=== PATIENT | male | born 1945 | race Caucasian/White ===

== ENCOUNTER 2020-12-06 23:21 | Observation (INO) | payer MEDICARE, OTHER ==
[2020-12-06] MEDS ORDERED: Sodium Chloride 0.9% 1,000 ML IV ONE (23:50)
--- NOTE | 2020-12-06 23:51 | EDM.PDOC ---
ED HPI GENERAL MEDICAL PROBLEM - General Chief Complaint: Gastrointestinal Problem Stated Complaint: BLOOD IN STOOL Time Seen by Provider: 12/06/20 23:32 Source of Information: Reports: Patient, Family () History Limitations: Reports: No Limitations - History of Present Illness INITIAL COMMENTS - FREE TEXT/NARRATIVE: Mr. Wilson is a very pleasant 75-year-old gentleman who now presents the ED after developing painless bright red blood per rectum around 19:30 this evening. He states that he has had 4-5 episodes since then. He also reports feeling somewhat lightheaded around the time he arrived to the ED. He denies having abdominal pain, or recent nausea, vomiting, constipation, or diarrhea. No prior similar symptoms. The patient states that he underwent a colonoscopy on 11/27/2020, with 10 polypectomies. All have returned negative for cancer. The patient states that he takes a full aspirin on "most days" to help treat some arthritic pain. He is not otherwise on an anticoagulant. Here in the ED, the patient's initial BP is found to be mildly elevated at 141/72, otherwise, he is hemodynamically stable, afebrile, saturating 96% on room air. He appears to be comfortable and in no acute distress. Prior to this evening, the patient denies having a recent fever, chills, sore throat, ear pain, nasal or sinus congestion, cough, dyspnea, chest pain, palpitations, nausea, vomiting, constipation, diarrhea, abdominal pain, urinary symptoms, recent weight gain or weight loss, recent bloody bowel movements or black bowel movements, recent joint aches, headaches, or rashes. I reviewed the PMHx/PSHx/SocHx, which was reviewed with the patient by the RN. The patient's PCP is Dr. Gary Avina. His Surgeon is Dr. Hamzah Barnett. - Related Data Allergies Allergy/AdvReac Type Severity Reaction Status Date / Time No Known Allergies Allergy Verified 12/06/20 23:29 Home Meds: Home Meds Cetirizine [ZyrTEC] 10 mg PO DAILY PRN 06/14/19 [History] Fluticasone Propionate [Flonase] 1 dose NASBOTH BID 06/14/19 [History] Glimepiride [Amaryl] 2 mg PO QPM 06/14/19 [History] Glimepiride [Amaryl] 4 mg PO QAM 06/14/19 [History] Levothyroxine [Synthroid] 50 mcg PO DAILY 06/14/19 [History] Lisinopril/Hydrochlorothiazide [Lisinopril-HCTZ 10-12.5 MG] 1 tab PO DAILY 06/14/19 [History] Sildenafil Citrate 60 mg PO ASDIRECTED PRN 06/14/19 [History] atorvaSTATin Calcium [Lipitor] 20 mg PO DAILY 06/14/19 [History] metFORMIN [Glucophage] 1,000 mg PO BID 06/14/19 [History] Albuterol Sulfate [Albuterol Sulfate HFA] 2 puff INH Q6H PRN 12/06/20 [History] Insulin Glarg,Human.Rec.Analog [Lantus] 13 units SQ QAM 12/06/20 [History] Insulin Glarg,Human.Rec.Analog [Lantus] 17 units SQ QPM 12/06/20 [History] Past Medical History HEENT History: Reports: Allergic Rhinitis, Impaired Vision Other HEENT History: Wears glasses Cardiovascular History: Reports: High Cholesterol, Hypertension Respiratory History: Reports: None Gastrointestinal History: Reports: Colon Polyp Genitourinary History: Reports: None 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 Musculoskeletal History: Reports: Fracture Neurological History: Reports: None Psychiatric History: Reports: None Endocrine/Metabolic History: Reports: Diabetes, Type II, Hypothyroidism Hematologic History: Reports: None Immunologic History: Reports: None Oncologic (Cancer) History: Reports: None Dermatologic History: Reports: Melanoma - Past Surgical History Head Surgeries/Procedures: Reports: None Respiratory Surgical History: Reports: None GI Surgical History: Reports: Colonoscopy Male Surgical History: Reports: None Oncologic Surgical History: Reports: None Dermatological Surgical History: Reports: None Social & Family History - Tobacco Use Tobacco Use Status *Q: Current Every Day Tobacco User Years of Tobacco use: 30 Packs/Tins Daily: 0.5 - Caffeine Use Caffeine Use: Reports: Coffee - Recreational Drug Use Recreational Drug Use: No ED ROS GENERAL - Review of Systems Review Of Systems: Comprehensive ROS is negative, except as noted in HPI. ED EXAM, GI/ABD - Physical Exam Exam: See Below Exam Limited By: No Limitations General Appearance: Alert, WD/WN, No Apparent Distress Eyes: Bilateral: Normal Appearance, EOMI Ears: Normal External Exam, Hearing Grossly Normal Nose: Normal Inspection Throat/Mouth: Normal Inspection, Normal Lips, Normal Voice, No Airway Compromise Head: Atraumatic, Normocephalic Neck: Normal Inspection, Full Range of Motion Respiratory/Chest: No Respiratory Distress, Lungs Clear, Normal Breath Sounds, No Accessory Muscle Use Cardiovascular: Normal Peripheral Pulses, Regular Rate, Rhythm, No Edema, No Gallop, No JVD, No Murmur, No Rub GI/Abdominal Exam: Normal Bowel Sounds, Soft, Non-Tender, No Organomegaly, No Distention, No Abnormal Bruit, No Mass Rectal (Males) Exam: Normal Rectal Tone, Bloody Stool (dark red/maroon), Heme + Stool. No: Mass, Perirectal Abscess, Tenderness Back Exam: Normal Inspection, Full Range of Motion, NT Extremities: Normal Inspection, Normal Range of Motion, No Pedal Edema, Normal Capillary Refill Neurological: Alert, Oriented, Normal Cognition, No Motor/Sensory Deficits Psychiatric: Normal Affect Skin Exam: Warm, Dry, Intact, Normal Color, No Rash Course - Vital Signs Last Recorded V/S: Last Vital Signs Temp 35.7 C L 12/06/20 23:29 Pulse 92 12/06/20 23:29 Resp 10 L 12/06/20 23:29 BP 141/72 H 12/06/20 23:29 Pulse Ox 96 12/06/20 23:29 Orthostatic Blood Pressure [ 98/63 Standing] Orthostatic Blood Pressure [ 87/68 Supine] - Orders/Labs/Meds Orders: Active Orders 24 hr Category Date Time Status Hemoccult [Fecal Occult Blood Collection] [RC] Care 12/06/20 23:56 Active ASDIRECTED Orthostatic Vital Signs [RC] STAT Care 12/06/20 23:45 Active Orthostatic Vital Signs [RC] STAT Care 12/06/20 23:50 Active Sodium Chloride 0.9% [Normal Saline] 1,000 ml Med 12/07/20 01:30 Active IV ASDIRECTED Medication Orders Sodium Chloride (Normal Saline) 1,000 mls @ 150 mls/hr IV ASDIRECTED WILLIE Last Admin: 12/07/20 01:35 Dose: 150 mls/hr Documented by: OLEGARIO Labs: Laboratory Tests 12/06/20 12/06/20 12/06/20 Range/Units 23:34 23:34 23:34 WBC 12.53 H (4.23-9.07) K/mm3 RBC 3.70 L (4.63-6.08) M/mm3 Hgb 10.2 L (13.7-17.5) gm/dl Hct 32.3 L (40.1-51.0) % MCV 87.3 (79.0-92.2) fl MCH 27.6 (25.7-32.2) pg MCHC 31.6 L (32.2-35.5) g/dl RDW Std Deviation 42.3 (35.1-43.9) fL Plt Count 254 (163-337) K/mm3 MPV 11.7 (9.4-12.3) fl Neutrophils % (Manual) 74 H (40-60) % Band Neutrophils % 0 (0-10) % Lymphocytes % (Manual) 21 (20-40) % Atypical Lymphs % 0 % Monocytes % (Manual) 4 (2-10) % Eosinophils % (Manual) 1 (0.8-7.0) % Basophils % (Manual) 0 L (0.2-1.2) Platelet Estimate Adequate Hypochromasia 1+ slight Poikilocytosis 1+ slight Anisocytosis 1+ slight RBC Morph Comment Normal PT 10.9 (9.7-12.0) SECONDS INR 1.02 APTT 22.8 (21.7-31.4) SECONDS Sodium 139 (136-145) mEq/L Potassium 4.2 (3.5-5.1) mEq/L Chloride 104 (98-107) mEq/L Carbon Dioxide 22 (21-32) mEq/L Anion Gap 17.2 H (5-15) BUN 25 H (7-18) mg/dL Creatinine 1.7 H (0.7-1.3) mg/dL Est Cr Clr Drug Dosing 37.57 mL/min Estimated GFR (MDRD) 39 (>60) mL/min BUN/Creatinine Ratio 14.7 (14-18) Glucose 270 H (83-115) mg/dL Calcium 8.6 (8.5-10.1) mg/dL Magnesium 2.0 (1.8-2.4) mg/dl Total Bilirubin 0.3 (0.2-1.0) mg/dL AST 14 L (15-37) U/L ALT 25 (16-63) U/L Alkaline Phosphatase 117 H (46-116) U/L Total Protein 6.6 (6.4-8.2) g/dl Albumin 3.5 (3.4-5.0) g/dl Globulin 3.1 gm/dL Albumin/Globulin Ratio 1.1 (1-2) Meds: Medications Generic Name Dose Route Start Last Admin Trade Name Freq PRN Reason Stop Dose Admin Sodium Chloride 1,000 mls @ 150 mls/hr 12/07/20 01:30 12/07/20 01:35 Normal Saline IV 150 mls/hr ASDIRECTED WILLIE Administration Discontinued Medications Generic Name Dose Route Start Last Admin Trade Name Freq PRN Reason Stop Dose Admin Sodium Chloride 1,000 mls @ 999 mls/hr 12/06/20 23:50 12/06/20 23:55 Normal Saline IV 12/07/20 00:50 999 mls/hr ONETIME ONE Administration Insulin Human Regular 5 unit 12/07/20 01:25 12/07/20 01:35 Insulin Regular, Human 100 Units/Ml 3 Ml Vial IV 12/07/20 01:26 5 unit ONETIME STA Administration - Re-Assessments/Exams Free Text/Narrative Re-Assessment/Exam: 12/06/20 23:45 As above, the patient has had 4-5 episodes of painless hematochezia since 19:30 tonight, following a colonoscopy with 10 polypectomies 9 days ago. While the patient describes the bleeding as bright red, on rectal exam, I find the stool to be dark red/maroon, but grossly heme positive. This suggests a right-sided source. No external hemorrhoids visualized, and no internal hemorrhoids palpated. I have ordered a work-up that includes orthostatics and several blood tests. 12/06/20 23:51 Notified by Karon SHANE that the patient is orthostatic. I have therefore ordered 1 L of IV fluid, to be followed by repeat orthostatics. 12/07/20 00:27 The patient's CBC is remarkable for mild leukocytosis of 12.53, but with 0% bandemia. His H/H is mildly depressed at 10.2/32.3, with the remainder of his CBC being unremarkable. His CMP is remarkable for an anion gap slightly elevated at 17.2, but with a bicarbonate normal at 22. His BUN/Cr are elevated at 25/1.7, and he has hyperglycemia of 270, with the remainder of his CMP being unremarkable. His magnesium level is within normal limits at 2.0. His coags are within normal limits. There are no prior labs to compare. 12/07/20 01:05 Following 1 L of IV fluid, the patient is no longer orthostatic. 12/07/20 01:17 Test results discussed with the patient and his . While the patient is no longer, strictly speaking, orthostatic, he is still somewhat hypotensive, and given his age, I believe it would be better if he were to be placed into observation so that he can be seen by the Surgeon in the morning. The patient and his agreed. Case then discussed with Dr. Juan Kay at 00:13. He recommended that the patient be admitted to the Hospitalist, then have Dr. Barnett called in the morning. 12/07/20 02:[address] Alva, Hospitalist, at 02:02. He accepted the patient for placement into observation. He asked that I write bridge orders. Departure - Departure Time of Disposition: 02:05 Disposition: Refer to Observation Condition: Good Clinical Impression: Lower GI bleed, Orthostasis, Renal insufficiency, Hyperglycemia due to type 2 diabetes mellitus - Discharge Information *PRESCRIPTION DRUG MONITORING PROGRAM REVIEWED*: Not Applicable *COPY OF PRESCRIPTION DRUG MONITORING REPORT IN PATIENT TY: Not Applicable Referrals: Gary Avina MD [Primary Care Provider] - Hamzah Barnett MD [Physician] - Forms: ED Department Discharge Sepsis Event Note (ED) - Evaluation Sepsis Screening Result: No Definite Risk - Focused Exam Vital Signs: Vital Signs Temp Pulse Resp BP Pulse Ox 12/06/20 23:29 35.7 C L 92 10 L 141/72 H 96 - My Orders Last 24 Hours: My Active Orders 12/06/20 23:45 Orthostatic Vital Signs [RC] STAT 12/06/20 23:50 Orthostatic Vital Signs [RC] STAT 12/06/20 23:56 Hemoccult [Fecal Occult Blood Collection] [RC] ASDIRECTED 12/07/20 01:30 Sodium Chloride 0.9% [Normal Saline] 1,000 ml IV ASDIRECTED - Assessment/Plan Last 24 Hours: My Active Orders 12/06/20 23:45 Orthostatic Vital Signs [RC] STAT 12/06/20 23:50 Orthostatic Vital Signs [RC] STAT 12/06/20 23:56 Hemoccult [Fecal Occult Blood Collection] [RC] ASDIRECTED 12/07/20 01:30 Sodium Chloride 0.9% [Normal Saline] 1,000 ml IV ASDIRECTED
[2020-12-07] MEDS ORDERED: Insulin Regular, Human 100 Units/ML 3 ML Vial IV STA (01:25)
[2020-12-07] MEDS ORDERED: Sodium Chloride 0.9% 1,000 ML IV SCH ×2 (01:30→04:30)
[2020-12-07] MEDS ORDERED: Sodium Chloride 0.9% 1,000 ML IV ONE (02:53)
[2020-12-07] MEDS ORDERED: Non-Formulary Medication 1 Each (Albuterol Sulfate 8.5 GM Inhaler) INH PRN (07:22)
[2020-12-07] MEDS: Pantoprazole 40 MG Vial IVPUSH SCH ×2 (08:18→20:27)
[2020-12-07] MEDS: Dextrose 5%-0.45% NaCl 1,000 ML IV SCH ×2 (08:18→20:31)
--- NOTE | 2020-12-07 08:32 | PCM.HP.2 ---
H&P History of Present Illness - General Date of Service: 12/07/20 Admit Problem/Dx: Admission Diagnosis/Problem Admission Diagnosis/Problem GI bleed not requiring more than 4 units of blood in 24 hours, ICU, or surgery - History of Present Illness Initial Comments - Free Text/Narative: Patient is a 75-year-old presents to the emergency department after developing bright red blood per rectum last evening. Patient reported in the emergency department that he had 4-5 episodes of hematochezia. At time presentation patient denied any abdominal discomfort, nausea and vomiting, diarrhea melena or hematemesis. It does appear that the patient underwent a colonoscopy on 11/27/2020 where he had 10 polypectomies for which they are reported to be negative for malignancy. Patient does not take any anticoagulation however is on a full-strength aspirin daily. Patient otherwise denies any complaints and overall is a marginal historian. - Related Data Allergies/Adverse Reactions: Allergies Allergy/AdvReac Type Severity Reaction Status Date / Time No Known Allergies Allergy Verified 12/06/20 23:29 Home Medications: Home Meds Cetirizine [ZyrTEC] 10 mg PO DAILY PRN 06/14/19 [History] Fluticasone Propionate [Flonase] 1 dose NASBOTH BID PRN 06/14/19 [History] Glimepiride [Amaryl] 2 mg PO 1800 06/14/19 [History] Glimepiride [Amaryl] 4 mg PO QAM 06/14/19 [History] Levothyroxine [Synthroid] 50 mcg PO DAILY 06/14/19 [History] Lisinopril/Hydrochlorothiazide [Lisinopril-HCTZ 10-12.5 MG] 1 tab PO DAILY 1 08/14/18 [History] Sildenafil Citrate 60 mg PO ASDIRECTED PRN 06/14/19 [History] atorvaSTATin Calcium [Lipitor] 20 mg PO DAILY 06/14/19 [History] metFORMIN [Glucophage] 1,000 mg PO 06/14/19 [History] Albuterol Sulfate [Albuterol Sulfate HFA] 2 puff INH Q6H PRN 12/06/20 [History] Insulin Glarg,Human.Rec.Analog [Lantus] 13 units SQ QAM 12/06/20 [History] Insulin Glarg,Human.Rec.Analog [Lantus] 19 units SQ 1800 12/06/20 [History] Past Medical History HEENT History: Reports: Allergic Rhinitis, Impaired Vision Other HEENT History: Wears glasses Cardiovascular History: Reports: High Cholesterol, Hypertension Respiratory History: Reports: None Gastrointestinal History: Reports: Colon Polyp Genitourinary History: Reports: None 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 Musculoskeletal History: Reports: Fracture Neurological History: Reports: None Psychiatric History: Reports: None Endocrine/Metabolic History: Reports: Diabetes, Type II, Hypothyroidism Hematologic History: Reports: None Immunologic History: Reports: None Oncologic (Cancer) History: Reports: None Dermatologic History: Reports: Melanoma - Infectious Disease History Infectious Disease History: Reports: Chicken Pox, Measles - Past Surgical History Head Surgeries/Procedures: Reports: None HEENT Surgical History: Reports: None Cardiovascular Surgical History: Reports: None Respiratory Surgical History: Reports: None GI Surgical History: Reports: Colonoscopy, Other (See Below) Other GI Surgeries/Procedures: 11/27 with 10 polyps removed, all were non malignant Male Surgical History: Reports: None Endocrine Surgical History: Reports: None Neurological Surgical History: Reports: None Musculoskeletal Surgical History: Reports: None Oncologic Surgical History: Reports: None Dermatological Surgical History: Reports: None Social & Family History - Family History Family Medical History: No Pertinent Family History - Tobacco Use Tobacco Use Status *Q: Former Tobacco User Years of Tobacco use: 20 Packs/Tins Daily: 0.5 Used Tobacco, but Quit: Yes Month/Year Tobacco Last Used: Second Hand Smoke Exposure: No - Caffeine Use Caffeine Use: Reports: Coffee Caffeine Use Comment: 1-2 cups a day - Alcohol Use Date of Last Drink: 11/16/20 - Recreational Drug Use Recreational Drug Use: No H&P Review of Systems - Review of Systems: Review Of Systems: Comprehensive ROS is negative, except as noted in HPI. General: Reports: No Symptoms HEENT: Reports: No Symptoms Pulmonary: Reports: No Symptoms Cardiovascular: Reports: No Symptoms Gastrointestinal: Reports: Bloody Stool ( ), Hematochezia. Denies: Hematemesis, Melena, Mucous in Stool, Nausea, Stool Incontinence Genitourinary: Reports: No Symptoms Musculoskeletal: Reports: No Symptoms Skin: Reports: No Symptoms Psychiatric: Reports: No Symptoms Neurological: Reports: No Symptoms Exam - Exam Exam: See Below - Vital Signs Vital Signs: Last Vital Signs Temp 97.7 F 12/07/20 04:19 Pulse 74 12/07/20 04:19 Resp 16 12/07/20 04:19 BP 118/82 12/07/20 04:19 Pulse Ox 98 12/07/20 04:19 Orthostatic Blood Pressure [ 77/52 Sitting] Orthostatic Blood Pressure [ 86/65 Standing] Orthostatic Blood Pressure [ 106/58 Supine] Weight: 180 lb 3.2 oz - Exam General: Alert, Oriented HEENT: Conjunctiva Clear, Hearing Intact, Mucosa Moist & [place] Neck: Supple, Trachea Midline Lungs: Clear to Auscultation, Normal Respiratory Effort Cardiovascular: Regular Rate, Regular Rhythm. No: Systolic Murmur GI/Abdominal Exam: Normal Bowel Sounds, Soft, Non-Tender, No Organomegaly, No Distention. No: Guarding, Rigid, Rebound, Tender, Splenomegaly Extremities: Normal Inspection Peripheral Pulses: 2+: Radial (L), Radial (R) Skin: Warm, Dry, Intact Neuro Extensive - Mental Status: Alert, Oriented x3, Other (gcs 15 ) - Patient Data Lab Results Last 24 hrs: Laboratory Results - last 24 hr 12/06/20 12/06/20 12/06/20 Range/Units 23:34 23:34 23:34 WBC 12.53 H (4.23-9.07) K/mm3 RBC 3.70 L (4.63-6.08) M/mm3 Hgb 10.2 L (13.7-17.5) gm/dl Hct 32.3 L (40.1-51.0) % MCV 87.3 (79.0-92.2) fl MCH 27.6 (25.7-32.2) pg MCHC 31.6 L (32.2-35.5) g/dl RDW Std Deviation 42.3 (35.1-43.9) fL Plt Count 254 (163-337) K/mm3 MPV 11.7 (9.4-12.3) fl Neutrophils % (Manual) 74 H (40-60) % Band Neutrophils % 0 (0-10) % Lymphocytes % (Manual) 21 (20-40) % Atypical Lymphs % 0 % Monocytes % (Manual) 4 (2-10) % Eosinophils % (Manual) 1 (0.8-7.0) % Basophils % (Manual) 0 L (0.2-1.2) Platelet Estimate Adequate Hypochromasia 1+ slight Poikilocytosis 1+ slight Anisocytosis 1+ slight RBC Morph Comment Normal PT 10.9 (9.7-12.0) SECONDS INR 1.02 APTT 22.8 (21.7-31.4) SECONDS Sodium 139 (136-145) mEq/L Potassium 4.2 (3.5-5.1) mEq/L Chloride 104 (98-107) mEq/L Carbon Dioxide 22 (21-32) mEq/L Anion Gap 17.2 H (5-15) BUN 25 H (7-18) mg/dL Creatinine 1.7 H (0.7-1.3) mg/dL Est Cr Clr Drug Dosing 37.57 mL/min Estimated GFR (MDRD) 39 (>60) mL/min BUN/Creatinine Ratio 14.7 (14-18) Glucose 270 H (83-115) mg/dL POC Glucose (70-99) mg/dL Calcium 8.6 (8.5-10.1) mg/dL Magnesium 2.0 (1.8-2.4) mg/dl Total Bilirubin 0.3 (0.2-1.0) mg/dL AST 14 L (15-37) U/L ALT 25 (16-63) U/L Alkaline Phosphatase 117 H (46-116) U/L Total Protein 6.6 (6.4-8.2) g/dl Albumin 3.5 (3.4-5.0) g/dl Globulin 3.1 gm/dL Albumin/Globulin Ratio 1.1 (1-2) 12/07/20 12/07/20 12/07/20 Range/Units 03:48 06:09 06:09 WBC 7.14 (4.23-9.07) K/mm3 RBC 2.68 L (4.63-6.08) M/mm3 Hgb 7.3 L* D (13.7-17.5) gm/dl Hct 23.6 L (40.1-51.0) % MCV 88.1 (79.0-92.2) fl MCH 27.2 (25.7-32.2) pg MCHC 30.9 L (32.2-35.5) g/dl RDW Std Deviation 41.9 (35.1-43.9) fL Plt Count 162 L D (163-337) K/mm3 MPV 10.6 (9.4-12.3) fl Neutrophils % (Manual) (40-60) % Band Neutrophils % (0-10) % Lymphocytes % (Manual) (20-40) % Atypical Lymphs % % Monocytes % (Manual) (2-10) % Eosinophils % (Manual) (0.8-7.0) % Basophils % (Manual) (0.2-1.2) Platelet Estimate Hypochromasia Poikilocytosis Anisocytosis RBC Morph Comment PT (9.7-12.0) SECONDS INR APTT (21.7-31.4) SECONDS Sodium 146 H (136-145) mEq/L Potassium 3.9 (3.5-5.1) mEq/L Chloride 112 H (98-107) mEq/L Carbon Dioxide 25 (21-32) mEq/L Anion Gap 12.9 (5-15) BUN 22 H (7-18) mg/dL Creatinine 1.1 (0.7-1.3) mg/dL Est Cr Clr Drug Dosing 57.13 mL/min Estimated GFR (MDRD) > 60 (>60) mL/min BUN/Creatinine Ratio 20.0 H (14-18) Glucose 117 H (83-115) mg/dL POC Glucose 127 H (70-99) mg/dL Calcium 7.7 L (8.5-10.1) mg/dL Magnesium (1.8-2.4) mg/dl Total Bilirubin (0.2-1.0) mg/dL AST (15-37) U/L ALT (16-63) U/L Alkaline Phosphatase (46-116) U/L Total Protein (6.4-8.2) g/dl Albumin (3.4-5.0) g/dl Globulin gm/dL Albumin/Globulin Ratio (1-2) // Range/Units 06:21 WBC (4.23-9.07) K/mm3 RBC (4.63-6.08) M/mm3 Hgb (13.7-17.5) gm/dl Hct (40.1-51.0) % MCV (79.0-92.2) fl MCH (25.7-32.2) pg MCHC (32.2-35.5) g/dl RDW Std Deviation (35.1-43.9) fL Plt Count (163-337) K/mm3 MPV (9.4-12.3) fl Neutrophils % (Manual) (40-60) % Band Neutrophils % (0-10) % Lymphocytes % (Manual) (20-40) % Atypical Lymphs % % Monocytes % (Manual) (2-10) % Eosinophils % (Manual) (0.8-7.0) % Basophils % (Manual) (0.2-1.2) Platelet Estimate Hypochromasia Poikilocytosis Anisocytosis RBC Morph Comment PT (9.7-12.0) SECONDS INR APTT (21.7-31.4) SECONDS Sodium (136-145) mEq/L Potassium (3.5-5.1) mEq/L Chloride (98-107) mEq/L Carbon Dioxide (21-32) mEq/L Anion Gap (5-15) BUN (7-18) mg/dL Creatinine (0.7-1.3) mg/dL Est Cr Clr Drug Dosing mL/min Estimated GFR (MDRD) (>60) mL/min BUN/Creatinine Ratio (14-18) Glucose (83-115) mg/dL POC Glucose 106 H (70-99) mg/dL Calcium (8.5-10.1) mg/dL Magnesium (1.8-2.4) mg/dl Total Bilirubin (0.2-1.0) mg/dL AST (15-37) U/L ALT (16-63) U/L Alkaline Phosphatase (46-116) U/L Total Protein (6.4-8.2) g/dl Albumin (3.4-5.0) g/dl Globulin gm/dL Albumin/Globulin Ratio (1-2) Result Diagrams: 12/07/20 06:09 12/07/20 06:09 Sepsis Event Note - Evaluation Sepsis Screening Result: No Definite Risk - Focused Exam Vital Signs: Vital Signs Temp Temp Pulse Pulse Resp BP BP 12/07/20 04:19 97.7 F 74 16 118/82 12/06/20 23:29 96.3 F L 92 10 L 141/72 H Pulse Ox 12/07/20 04:19 98 12/06/20 23:29 96 Problem List Initiated/Reviewed/Updated: Yes Orders Last 24hrs: Active Orders 24 hr Category Date Time Status Patient Status [ADT] Routine ADT 12/07/20 03:40 Active Accu Check [Blood Glucose Check, Bedside] [RC] Q4HR Care 12/07/20 04:20 Active Notify Provider Consults [RC] ASDIRECTED Care 12/07/20 04:30 Active Orthostatic Vital Signs [RC] 0800 Care 12/06/20 23:45 Active Up With Assistance [RC] BID Care 12/07/20 04:20 Active Consult to Physician [CONS] Routine Cons 12/07/20 04:25 Active NPO [Nothing Per Oral Diet] [DIET] Diet 12/07/20 Breakfast Active TYPE AND SCREEN [BBK] Routine Lab 12/07/20 06:09 Received Albuterol Sulfate Med 12/07/20 07:22 Pending 2 puff INH Q6H PRN Dextrose 5%-0.45% NaCl [Dextrose 5%-1/2 NS] 1,000 ml Med 12/07/20 07:30 Active IV ASDIRECTED Insulin Lispro [HumaLOG] Med 12/07/20 09:00 Active 0 unit SUBCUT TIDPC Pantoprazole [ProTONIX IV] Med 12/07/20 07:30 Active 40 mg IVPUSH Q12H Resuscitation Status Routine Resus Stat 12/07/20 04:19 Ordered Medication Orders Dextrose/Sodium Chloride (Dextrose 5%-1/2 Ns) 1,000 mls @ 75 mls/hr IV ASDIRECTED WILLIE Last Admin: 12/07/20 08:18 Dose: 75 mls/hr Documented by: DEVAN Insulin Human Lispro (Insulin Lispro 100 Unit/Ml 10 Ml Vial) 0 unit SUBCUT TIDPC [facility]; Protocol Non-Formulary Medication (Albuterol Sulfate) 2 puff INH Q6H PRN PRN Reason: Shortness of Breath Pantoprazole Sodium (Pantoprazole 40 Mg Vial) 40 mg IVPUSH Q12H WILLIE Last Admin: 12/07/20 08:18 Dose: 40 mg Documented by: DEVAN Assessment/Plan Comment:: A: Acute GI Bleed -Hgb 10.2 -->7.3 -Recent colonoscopy w biopsy -BUN 22, suspect lower source, possible from biopsy sites -INR 1.0, no hx of AC, on ADA 325mg daily Anemia -Acute blood loss secondary to GI bleed -MCV 88 -Hgb 7.3 currently Thrombocytopenia -Mild Plt 162, was 254 on admit -No evidence of DIC DM II -BG 270 on admit, currently 117 Acute Kidney Injury -On presentation Cr 1.7, now 1.1 s/p fluid resus Hypernatremia -Na 146, was 139 on presentation to ER Plan: Protonix 40mg IV push now, then BID Type and screen, Transfuse for active blood loss or Hgb <7 Hold Octreotide as no evidence of Cirrhosis or UGIB Surgical consult given recent colonoscopy with biopsy D5 1/2 NS given IV insulin in ED and NPO status, watch serum Na, may need D5W if Na continues to increase SSI low sliding scale AM labs NPO status - Mortality Measure Prognosis:: Good
[2020-12-07] MEDS ORDERED: Albuterol/Ipratropium 3.0-0.5 MG/3 ML Neb Soln NEB PRN (08:39)
[2020-12-07] MEDS ORDERED: Ondansetron 4 MG/2 ML SDV IVPUSH PRN (08:39)
[2020-12-07] MEDS ORDERED: HYDROmorphone 0.5 MG/0.5 ML Syringe IVPUSH PRN (08:39)
[2020-12-07] MEDS ORDERED: Acetaminophen 325 MG Tab PO PRN (08:40)
[2020-12-07] MEDS: Insulin Lispro 100 UNIT/ML 10 ML Vial SUBCUT SCH ×3 (11:48→19:05)
--- NOTE | 2020-12-07 15:34 | PCM.CONS ---
H&P History of Present Illness - General Date of Service: 12/07/20 Admit Problem/Dx: Admission Diagnosis/Problem Admission Diagnosis/Problem GI bleed not requiring more than 4 units of blood in 24 hours, ICU, or surgery Source of Information: Patient History Limitations: Reports: No Limitations - History of Present Illness Initial Comments - Free Text/Narative: The patient had Colonoscopy 11/27 with 10 polyps removed. Only one polyp was large- 1.5 cm ans sessile in the distal ascending colon and was removed piecemeal and this area was tattoed. Patient did well post procedure. Last night he passed 4 episodes of bright red blood per rectum. No abdominal pain. Patient does report mild lightheadedness. He came to the ED where Hgb was 10.2. Patient was stable. However, this AM Hgb was 7.3. Patient remains stable. I was called to see the patient. No fevers or chills. Patient has not passed any BMs since presenting to the ER. Onset of Symptoms: Reports: Sudden Duration of Symptoms: Reports: Day(s): (1) Improves with: Reports: None Worsens with: Reports: None Associated Symptoms: Reports: Other (mild lightheadedness) - Related Data Allergies/Adverse Reactions: Allergies Allergy/AdvReac Type Severity Reaction Status Date / Time No Known Allergies Allergy Verified 12/06/20 23:29 Home Medications: Home Meds Cetirizine [ZyrTEC] 10 mg PO DAILY PRN 06/14/19 [History] Fluticasone Propionate [Flonase] 1 dose NASBOTH BID PRN 06/14/19 [History] Glimepiride [Amaryl] 2 mg PO 1800 06/14/19 [History] Glimepiride [Amaryl] 4 mg PO QAM 06/14/19 [History] Levothyroxine [Synthroid] 50 mcg PO DAILY 06/14/19 [History] Lisinopril/Hydrochlorothiazide [Lisinopril-HCTZ 10-12.5 MG] 1 tab PO DAILY 06/14/19 [History] Sildenafil Citrate 60 mg PO ASDIRECTED PRN 06/14/19 [History] atorvaSTATin Calcium [Lipitor] 20 mg PO DAILY 06/14/19 [History] metFORMIN [Glucophage] 1,000 mg PO ,06/14/19 [History] Albuterol Sulfate [Albuterol Sulfate HFA] 2 puff INH Q6H PRN 12/06/20 [History] Insulin Glarg,Human.Rec.Analog [Lantus] 13 units SQ QAM 12/06/20 [History] Insulin Glarg,Human.Rec.Analog [Lantus] 19 units SQ 1800 12/06/20 [History] Past Medical History HEENT History: Reports: Allergic Rhinitis, Impaired Vision Other HEENT History: Wears glasses Cardiovascular History: Reports: High Cholesterol, Hypertension Respiratory History: Reports: None Gastrointestinal History: Reports: Colon Polyp Genitourinary History: Reports: None METAL SPRAYER History: Reports: None Musculoskeletal History: Reports: Fracture Neurological History: Reports: None Psychiatric History: Reports: None Endocrine/Metabolic History: Reports: Diabetes, Type II, Hypothyroidism Hematologic History: Reports: None Immunologic History: Reports: None Oncologic (Cancer) History: Reports: None Dermatologic History: Reports: Melanoma - Infectious Disease History Infectious Disease History: Reports: Chicken Pox, Measles - Past Surgical History Head Surgeries/Procedures: Reports: None HEENT Surgical History: Reports: None Cardiovascular Surgical History: Reports: None Respiratory Surgical History: Reports: None GI Surgical History: Reports: Colonoscopy, Other (See Below) Other GI Surgeries/Procedures: 11/27 with 10 polyps removed, all were non malignant Male Surgical History: Reports: None Endocrine Surgical History: Reports: None Neurological Surgical History: Reports: None Musculoskeletal Surgical History: Reports: None Oncologic Surgical History: Reports: None Dermatological Surgical History: Reports: None Social & Family History - Family History Family Medical History: No Pertinent Family History - Tobacco Use Tobacco Use Status *Q: Former Tobacco User Years of Tobacco use: 20 Packs/Tins Daily: 0.5 Used Tobacco, but Quit: Yes Month/Year Tobacco Last Used: Second Hand Smoke Exposure: No - Caffeine Use Caffeine Use: Reports: Coffee Caffeine Use Comment: 1-2 cups a day - Alcohol Use Date of Last Drink: 11/16/20 - Recreational Drug Use Recreational Drug Use: No H&P Review of Systems - Review of Systems: Review Of Systems: See Below General: Reports: No Symptoms HEENT: Reports: No Symptoms Pulmonary: Reports: No Symptoms Cardiovascular: Reports: No Symptoms Gastrointestinal: Reports: No Symptoms Genitourinary: Reports: No Symptoms Musculoskeletal: Reports: No Symptoms Skin: Reports: No Symptoms Psychiatric: Reports: No Symptoms Neurological: Reports: No Symptoms Hematologic/Lymphatic: Reports: No Symptoms Exam - Exam Exam: See Below - Vital Signs Vital Signs: Last Vital Signs Temp 97.5 F 12/07/20 11:23 Pulse 68 12/07/20 11:23 Resp 16 12/07/20 11:23 BP 109/63 12/07/20 11:23 Pulse Ox 96 12/07/20 11:23 Orthostatic Blood Pressure [ 77/52 Sitting] Orthostatic Blood Pressure [ 86/65 Standing] Orthostatic Blood Pressure [ 106/58 Supine] Weight: 81.737 kg - Exam General: Alert, Oriented, Cooperative Lungs: Clear to Auscultation, Normal Respiratory Effort Cardiovascular: Regular Rate, Regular Rhythm, Normal S1, Normal S2 GI/Abdominal Exam: Soft, Non-Tender, No Organomegaly, No Distention, No Abnormal Bruit - Patient Data Lab Results Last 24 hrs: Laboratory Results - last 24 hr 12/06/20 12/06/20 12/06/20 Range/Units 23:34 23:34 23:34 WBC 12.53 H (4.23-9.07) K/mm3 RBC 3.70 L (4.63-6.08) M/mm3 Hgb 10.2 L (13.7-17.5) gm/dl Hct 32.3 L (40.1-51.0) % MCV 87.3 (79.0-92.2) fl MCH 27.6 (25.7-32.2) pg MCHC 31.6 L (32.2-35.5) g/dl RDW Std Deviation 42.3 (35.1-43.9) fL Plt Count 254 (163-337) K/mm3 MPV 11.7 (9.4-12.3) fl Neutrophils % (Manual) 74 H (40-60) % Band Neutrophils % 0 (0-10) % Lymphocytes % (Manual) 21 (20-40) % Atypical Lymphs % 0 % Monocytes % (Manual) 4 (2-10) % Eosinophils % (Manual) 1 (0.8-7.0) % Basophils % (Manual) 0 L (0.2-1.2) Platelet Estimate Adequate Hypochromasia 1+ slight Poikilocytosis 1+ slight Anisocytosis 1+ slight RBC Morph Comment Normal PT 10.9 (9.7-12.0) SECONDS INR 1.02 APTT 22.8 (21.7-31.4) SECONDS Sodium 139 (136-145) mEq/L Potassium 4.2 (3.5-5.1) mEq/L Chloride 104 (98-107) mEq/L Carbon Dioxide 22 (21-32) mEq/L Anion Gap 17.2 H (5-15) BUN 25 H (7-18) mg/dL Creatinine 1.7 H (0.7-1.3) mg/dL Est Cr Clr Drug Dosing 37.57 mL/min Estimated GFR (MDRD) 39 (>60) mL/min BUN/Creatinine Ratio 14.7 (14-18) Glucose 270 H (83-115) mg/dL POC Glucose (70-99) mg/dL Calcium 8.6 (8.5-10.1) mg/dL Magnesium 2.0 (1.8-2.4) mg/dl Total Bilirubin 0.3 (0.2-1.0) mg/dL AST 14 L (15-37) U/L ALT 25 (16-63) U/L Alkaline Phosphatase 117 H (46-116) U/L Total Protein 6.6 (6.4-8.2) g/dl Albumin 3.5 (3.4-5.0) g/dl Globulin 3.1 gm/dL Albumin/Globulin Ratio 1.1 (1-2) Blood Type Gel Antibody Screen 12/07/20 12/07/20 12/07/20 Range/Units 03:48 06:09 06:09 WBC 7.14 (4.23-9.07) K/mm3 RBC 2.68 L (4.63-6.08) M/mm3 Hgb 7.3 L* D (13.7-17.5) gm/dl Hct 23.6 L (40.1-51.0) % MCV 88.1 (79.0-92.2) fl MCH 27.2 (25.7-32.2) pg MCHC 30.9 L (32.2-35.5) g/dl RDW Std Deviation 41.9 (35.1-43.9) fL Plt Count 162 L D (163-337) K/mm3 MPV 10.6 (9.4-12.3) fl Neutrophils % (Manual) (40-60) % Band Neutrophils % (0-10) % Lymphocytes % (Manual) (20-40) % Atypical Lymphs % % Monocytes % (Manual) (2-10) % Eosinophils % (Manual) (0.8-7.0) % Basophils % (Manual) (0.2-1.2) Platelet Estimate Hypochromasia Poikilocytosis Anisocytosis RBC Morph Comment PT (9.7-12.0) SECONDS INR APTT (21.7-31.4) SECONDS Sodium 146 H (136-145) mEq/L Potassium 3.9 (3.5-5.1) mEq/L Chloride 112 H (98-107) mEq/L Carbon Dioxide 25 (21-32) mEq/L Anion Gap 12.9 (5-15) BUN 22 H (7-18) mg/dL Creatinine 1.1 (0.7-1.3) mg/dL Est Cr Clr Drug Dosing 57.13 mL/min Estimated GFR (MDRD) > 60 (>60) mL/min BUN/Creatinine Ratio 20.0 H (14-18) Glucose 117 H (83-115) mg/dL POC Glucose 127 H (70-99) mg/dL Calcium 7.7 L (8.5-10.1) mg/dL Magnesium (1.8-2.4) mg/dl Total Bilirubin (0.2-1.0) mg/dL AST (15-37) U/L ALT (16-63) U/L Alkaline Phosphatase (46-116) U/L Total Protein (6.4-8.2) g/dl Albumin (3.4-5.0) g/dl Globulin gm/dL Albumin/Globulin Ratio (1-2) Blood Type Gel Antibody Screen 12/07/20 12/07/20 12/07/20 Range/Units 06:09 06:21 11:23 WBC (4.23-9.07) K/mm3 RBC (4.63-6.08) M/mm3 Hgb (13.7-17.5) gm/dl Hct (40.1-51.0) % MCV (79.0-92.2) fl MCH (25.7-32.2) pg MCHC (32.2-35.5) g/dl RDW Std Deviation (35.1-43.9) fL Plt Count (163-337) K/mm3 MPV (9.4-12.3) fl Neutrophils % (Manual) (40-60) % Band Neutrophils % (0-10) % Lymphocytes % (Manual) (20-40) % Atypical Lymphs % % Monocytes % (Manual) (2-10) % Eosinophils % (Manual) (0.8-7.0) % Basophils % (Manual) (0.2-1.2) Platelet Estimate Hypochromasia Poikilocytosis Anisocytosis RBC Morph Comment PT (9.7-12.0) SECONDS INR APTT (21.7-31.4) SECONDS Sodium (136-145) mEq/L Potassium (3.5-5.1) mEq/L Chloride (98-107) mEq/L Carbon Dioxide (21-32) mEq/L Anion Gap (5-15) BUN (7-18) mg/dL Creatinine (0.7-1.3) mg/dL Est Cr Clr Drug Dosing mL/min Estimated GFR (MDRD) (>60) mL/min BUN/Creatinine Ratio (14-18) Glucose (83-115) mg/dL POC Glucose 106 H 133 H (70-99) mg/dL Calcium (8.5-10.1) mg/dL Magnesium (1.8-2.4) mg/dl Total Bilirubin (0.2-1.0) mg/dL AST (15-37) U/L ALT (16-63) U/L Alkaline Phosphatase (46-116) U/L Total Protein (6.4-8.2) g/dl Albumin (3.4-5.0) g/dl Globulin gm/dL Albumin/Globulin Ratio (1-2) Blood Type B POSITIVE Gel Antibody Screen Positive Result Diagrams: 12/07/20 06:09 12/07/20 06:09 Sepsis Event Note - Evaluation Sepsis Screening Result: No Definite Risk - Focused Exam Vital Signs: Vital Signs Temp Pulse Resp BP Pulse Ox 12/07/20 11:23 97.5 F 68 16 109/63 96 12/07/20 08:10 98.1 F 76 20 109/93 H 99 12/07/20 04:19 97.7 F 74 16 118/82 98 Consult PN Assessment/Plan Procedures: Procedures ELECTROCARDIOGRAM TRACING (06/15/19) EXC F/E/E/N/L MAL+MRG 2.1-3 (06/15/19) GLUCOSE BLOOD TEST (06/15/19) INTMD RPR FACE/MM 2.5 CM/< (06/15/19) Problem List Initiated/Reviewed/Updated: No My Orders Last 24 Hours: My Active Orders 12/07/20 15:15 CBC WITH AUTO DIFF [HEME] Stat Plan: Patient has hematochezia with Hgb drop from 10 to 7 and some lightheadedness. He is only on ASA 325 daily. Had recent Colonoscopy 9 days ago. I recommended we do EGD and Colonoscopy due to the severity of the bleeding. We discussed risks, benefits and alternatives. One risk for these procedures is bleeding therefore we will be careful to only look for likely bleeding points and avoid biopsies. Another risks is perforation. All questions were answered and informed consent was obtained. Plan: EGD/COlonoscopy tomorrow 9AM - Check CBC now since it has not been rechecked yet - ok for pt to have CLD - start prep at 6 PM with golitely - NPO at Midnight Plan discussed with RN for the patient.
--- NOTE | 2020-12-07 15:37 | PCM.SN.2 ---
- Free Text/Narrative Note: I reviewed the CBC. Hgb is stable. Pt is stable. We will proceed with plan as outlined in the consult report. CBC in the AM if pt remained stable.
[2020-12-07] MEDS ORDERED: Polyethylene Glycol/Electrolytes 4,000 ML Bottle PO ONE (18:04)
[2020-12-08] MEDS: Pantoprazole 40 MG Vial IVPUSH SCH ×2 (06:44→18:46)
--- NOTE | 2020-12-08 08:13 | PCM.PREANE ---
Preanesthetic Assessment - Procedure Proposed Procedure: EGD and Colonoscopy - Anesthesia/Transfusion/Family Hx Anesthesia History: Prior Anesthesia Without Reaction Family History of Anesthesia Reaction: No Transfusion History: No Prior Transfusion(s) Intubation History: Unknown - Review of Systems General: No Symptoms, Fatigue Pulmonary: No Symptoms (Smoker: 1/2 ppd times 30 years.) Cardiovascular: No Symptoms (HTN and elevated cholesterol), Lightheadedness Gastrointestinal: Diarrhea Neurological: No Symptoms (renal insufficiency) Other: Reports: Diabetes (BS= 134 @ 0357), Thyroid Problems (hypothyroid), Sinus Problem (seasonal allergies) - Physical Assessment NPO Status Date: 12/06/20 NPO Status Time: 17:30 (supper) Vital Signs: Last Vital Signs Temp 36.6 C 12/08/20 03:53 Pulse 72 12/08/20 03:53 Resp 12 12/08/20 03:53 BP 103/67 12/08/20 03:53 Pulse Ox 97 12/08/20 03:53 Orthostatic Blood Pressure [ 77/52 Sitting] Orthostatic Blood Pressure [ 86/65 Standing] Orthostatic Blood Pressure [ 106/58 Supine] Height: 1.75 m Weight: 81.783 kg ASA Class: 3E Mental Status: Alert & Oriented x3 Airway Class: Mallampati = 2 Dentition: Reports: Normal Dentition, Dentures (upper), Caries Thyro-Mental Finger Breadths: 3 Mouth Opening Finger Breadths: 3 ROM/Head Extension: Full Lungs: Clear to Auscultation, Normal Respiratory Effort Cardiovascular: Regular Rate, Regular Rhythm, No Murmurs - Lab Values: Laboratory Last Values WBC 5.59 K/mm3 (4.23-9.07) 12/08/20 05:14 RBC 2.35 M/mm3 (4.63-6.08) L 12/08/20 05:14 Hgb 6.8 gm/dl (13.7-17.5) L* 12/08/20 07:15 Hct 22.0 % (40.1-51.0) L 12/08/20 07:15 MCV 88.5 fl (79.0-92.2) 12/08/20 05:14 MCH 27.2 pg (25.7-32.2) 12/08/20 05:14 MCHC 30.8 g/dl (32.2-35.5) L 12/08/20 05:14 RDW Std Deviation 42.6 fL (35.1-43.9) 12/08/20 05:14 Plt Count 138 K/mm3 (163-337) L 12/08/20 05:14 MPV 11.6 fl (9.4-12.3) 12/08/20 05:14 Neut % (Auto) 55.6 % (34.0-67.9) 12/08/20 05:14 Lymph % (Auto) 32.4 % (21.8-53.1) 12/08/20 05:14 [place] % (Auto) 7.7 % (5.3-12.2) 12/08/20 05:14 Eos % (Auto) 3.4 (0.8-7.0) 12/08/20 05:14 Baso % (Auto) 0.5 % (0.1-1.2) 12/08/20 05:14 Neut # (Auto) 3.11 K/mm3 (1.78-5.38) 12/08/20 05:14 Lymph # (Auto) 1.81 K/mm3 (1.32-3.57) 12/08/20 05:14 [place] # (Auto) 0.43 K/mm3 (0.30-0.82) 12/08/20 05:14 Eos # (Auto) 0.19 K/mm3 (0.04-0.54) 12/08/20 05:14 Baso # (Auto) 0.03 K/mm3 (0.01-0.08) 12/08/20 05:14 Neutrophils % (Manual) 74 % (40-60) H 12/06/20 23:34 Band Neutrophils % 0 % (0-10) 12/06/20 23:34 Lymphocytes % (Manual) 21 % (20-40) 12/06/20 23:34 Atypical Lymphs % 0 % 12/06/20 23:34 Monocytes % (Manual) 4 % (2-10) 12/06/20 23:34 Eosinophils % (Manual) 1 % (0.8-7.0) 12/06/20 23:34 Basophils % (Manual) 0 (0.2-1.2) L 12/06/20 23:34 Manual Slide Review Abnormal smear 12/08/20 05:14 Platelet Estimate Adequate 12/06/20 23:34 Hypochromasia 1+ slight 12/06/20 23:34 Poikilocytosis 1+ slight 12/06/20 23:34 Anisocytosis 1+ slight 12/06/20 23:34 RBC Morph Comment Normal 12/06/20 23:34 PT 10.9 SECONDS (9.7-12.0) 12/06/20 23:34 INR 1.02 12/06/20 23:34 APTT 22.8 SECONDS (21.7-31.4) 12/06/20 23:34 Sodium 146 mEq/L (136-145) H 12/07/20 06:09 Potassium 3.9 mEq/L (3.5-5.1) 12/07/20 06:09 Chloride 112 mEq/L (98-107) H 12/07/20 06:09 Carbon Dioxide 25 mEq/L (21-32) 12/07/20 06:09 Anion Gap 12.9 (5-15) 12/07/20 06:09 BUN 22 mg/dL (7-18) H 12/07/20 06:09 Creatinine 1.1 mg/dL (0.7-1.3) 12/07/20 06:09 Est Cr Clr Drug Dosing 57.13 mL/min 12/07/20 06:09 Estimated GFR (MDRD) > 60 mL/min (>60) 12/07/20 06:09 BUN/Creatinine Ratio 20.0 (14-18) H 12/07/20 06:09 Glucose 117 mg/dL (83-115) H 12/07/20 06:09 POC Glucose 134 mg/dL (70-99) H 12/08/20 03:57 Calcium 7.7 mg/dL (8.5-10.1) L 12/07/20 06:09 Magnesium 2.0 mg/dl (1.8-2.4) 12/06/20 23:34 Total Bilirubin 0.3 mg/dL (0.2-1.0) 12/06/20 23:34 AST 14 U/L (15-37) L 12/06/20 23:34 ALT 25 U/L (16-63) 12/06/20 23:34 Alkaline Phosphatase 117 U/L (46-116) H 12/06/20 23:34 Total Protein 6.6 g/dl (6.4-8.2) 12/06/20 23:34 Albumin 3.5 g/dl (3.4-5.0) 12/06/20 23:34 Globulin 3.1 gm/dL 12/06/20 23:34 Albumin/Globulin Ratio 1.1 (1-2) 12/06/20 23:34 SARS-CoV-2 RNA (DULCE) Negative (NEGATIVE) 12/07/20 15:43 Blood Type B POSITIVE 12/07/20 06:09 Gel Antibody Screen Positive 12/07/20 06:09 Crossmatch See Detail 12/07/20 06:09 Above labs reviewed and noted and within acceptable ranges to proceed with scheduled procedure. - Allergies Allergies/Adverse Reactions: Allergies Allergy/AdvReac Type Severity Reaction Status Date / Time No Known Allergies Allergy Verified 12/06/20 23:29 - Anesthesia Plan Pre-Op Medication Ordered: None - Acknowledgements Anesthesia Type Planned: MAC Pt an Appropriate Candidate for the Planned Anesthesia: Yes Alternatives and Risks of Anesthesia Discussed w Pt/Guardian: Yes Pt/Guardian Understands and Agrees with Anesthesia Plan: Yes PreAnesthesia Questionnaire HEENT History: Reports: Allergic Rhinitis, Impaired Vision Other HEENT History: Wears glasses Cardiovascular History: Reports: High Cholesterol, Hypertension Respiratory History: Reports: None Gastrointestinal History: Reports: Colon Polyp Genitourinary History: Reports: None SOLUTIONS ANALYST History: Reports: None Musculoskeletal History: Reports: Fracture Neurological History: Reports: None Psychiatric History: Reports: None Endocrine/Metabolic History: Reports: Diabetes, Type II, Hypothyroidism Hematologic History: Reports: None Immunologic History: Reports: None Oncologic (Cancer) History: Reports: None Dermatologic History: Reports: Melanoma - Infectious Disease History Infectious Disease History: Reports: Chicken Pox, Measles - Past Surgical History Head Surgeries/Procedures: Reports: None HEENT Surgical History: Reports: None Cardiovascular Surgical History: Reports: None Respiratory Surgical History: Reports: None GI Surgical History: Reports: Colonoscopy, Other (See Below) Other GI Surgeries/Procedures: 11/27 with 10 polyps removed, all were non malignant Male Surgical History: Reports: None Endocrine Surgical History: Reports: None Neurological Surgical History: Reports: None Musculoskeletal Surgical History: Reports: None Oncologic Surgical History: Reports: None Dermatological Surgical History: Reports: None - SUBSTANCE USE Tobacco Use Status *Q: Former Tobacco User Tobacco Use Within Last Twelve Months: Cigarettes Second Hand Smoke Exposure: No Date of Last Drink: 11/16/20 Recreational Drug Use History: No - HOME MEDS Home Medications: Home Meds Cetirizine [ZyrTEC] 10 mg PO DAILY PRN 06/14/19 [History] Fluticasone Propionate [Flonase] 1 dose NASBOTH BID PRN 06/14/19 [History] Glimepiride [Amaryl] 2 mg PO 1800 06/14/19 [History] Glimepiride [Amaryl] 4 mg PO QAM 06/14/19 [History] Levothyroxine [Synthroid] 50 mcg PO DAILY 06/14/19 [History] Lisinopril/Hydrochlorothiazide [Lisinopril-HCTZ 10-12.5 MG] 1 tab PO DAILY 06/14/19 [History] Sildenafil Citrate 60 mg PO ASDIRECTED PRN 06/14/19 [History] atorvaSTATin Calcium [Lipitor] 20 mg PO DAILY 06/14/19 [History] metFORMIN [Glucophage] 1,000 mg PO ,18 06/14/19 [History] Albuterol Sulfate [Albuterol Sulfate HFA] 2 puff INH Q6H PRN 12/06/20 [History] Insulin Glarg,Human.Rec.Analog [Lantus] 13 units SQ QAM 12/06/20 [History] Insulin Glarg,Human.Rec.Analog [Lantus] 19 units SQ 1800 12/06/20 [History] - CURRENT (IN HOUSE) MEDS Current Meds: Current Medications Acetaminophen (Acetaminophen 325 Mg Tab) 650 mg PO Q4H PRN PRN Reason: Fever Albuterol/Ipratropium (Albuterol/Ipratropium 3.0-0.5 Mg/3 Ml Neb Soln) 3 ml NEB Q6HRRT PRN PRN Reason: Shortness of Breath Hydromorphone HCl (Hydromorphone 0.5 Mg/0.5 Ml Syringe) 0.5 mg IVPUSH Q4H PRN PRN Reason: Abdominal Pain Dextrose/Sodium Chloride (Dextrose 5%-1/2 Ns) 1,000 mls @ 75 mls/hr IV ASDIRECTED WILLIE Last Admin: 12/07/20 20:31 Dose: 75 mls/hr Documented by: Insulin Human Lispro (Insulin Lispro 100 Unit/Ml 10 Ml Vial) [facility]; Protocol Last Admin: 12/07/20 19:05 Dose: Not Given Documented by: Ondansetron HCl (Ondansetron 4 Mg/2 Ml Sdv) 4 mg IVPUSH Q8H PRN PRN Reason: Nausea Pantoprazole Sodium (Pantoprazole 40 Mg Vial) 40 mg IVPUSH Q12H [facility] Last Admin: 12/08/20 06:44 Dose: 40 mg Documented by: Discontinued Medications Sodium Chloride (Normal Saline) 1,000 mls @ 999 mls/hr IV ONETIME ONE Stop: 12/07/20 00:50 Last Admin: 12/06/20 23:55 Dose: 999 mls/hr Documented by: Sodium Chloride (Normal Saline) 1,000 mls @ 150 mls/hr IV ASDIRECTED [facility] Last Admin: 12/07/20 01:35 Dose: 150 mls/hr Documented by: Sodium Chloride (Normal Saline) 1,000 mls @ 999 mls/hr IV ONETIME ONE Stop: 12/07/20 03:53 Last Admin: 12/07/20 04:49 Dose: Not Given Documented by: Sodium Chloride (Normal Saline) 1,000 mls @ 150 mls/hr IV ASDIRECTED [facility] Last Admin: 12/07/20 04:48 Dose: 150 mls/hr Documented by: Insulin Human Regular (Insulin Regular, Human 100 Units/Ml 3 Ml Vial) 5 unit IV ONETIME STA Stop: 12/07/20 01:26 Last Admin: 12/07/20 01:35 Dose: 5 unit Documented by: Non-Formulary Medication (Albuterol Sulfate) 2 puff INH Q6H PRN PRN Reason: Shortness of Breath Polyethylene Glycol/Electrolytes (Polyethylene Glycol/Electrolytes 4,000 Ml Bottle) 4,000 ml PO ONETIME ONE Stop: 12/07/20 18:05 Last Admin: 12/07/20 19:03 Dose: 4,000 ml Documented by:
[2020-12-08] MEDS ORDERED: Lidocaine 1% 4 ML ONE (08:23)
[2020-12-08] MEDS ORDERED: Sodium Chloride 0.9% 1,000 ML ONE (08:23)
[2020-12-08] MEDS ORDERED: Propofol 200 MG/20 ML SDV ONE (08:23)
[2020-12-08] MEDS ORDERED: Fluticasone Propionate Nasal Spray 16 GM Bottle NASBOTH PRN (08:24)
[2020-12-08] MEDS ORDERED: fentaNYL 100 MCG/2 ML SDV ONE (08:24)
[2020-12-08] MEDS ORDERED: Lactated Ringers 1,000 ML IV SCH (08:30)
[2020-12-08] MEDS ORDERED: Ondansetron 4 MG/2 ML SDV IVPUSH PRN (09:52)
[2020-12-08] MEDS ORDERED: Lactated Ringers 1,000 ML ONE (09:54)
--- NOTE | 2020-12-08 10:41 | PCM48HPAN ---
Post Anesthesia Note - EVALUATION WITHIN 48HRS OF ANESTHETIC Vital Signs in Normal Range: Yes Patient Participated in Evaluation: Yes Respiratory Function Stable: Yes Airway Patent: Yes Cardiovascular Function Stable: Yes Hydration Status Stable: Yes Pain Control Satisfactory: Yes Nausea and Vomiting Control Satisfactory: Yes Mental Status Recovered: Yes Vital Signs: Last Vital Signs Temp 36.8 C 12/08/20 10:21 Pulse 71 12/08/20 07:49 Resp 20 12/08/20 10:21 BP 82/50 L 12/08/20 10:21 Pulse Ox 97 12/08/20 10:21 Orthostatic Blood Pressure [ 77/52 Sitting] Orthostatic Blood Pressure [ 86/65 Standing] Orthostatic Blood Pressure [ 106/58 Supine]
--- NOTE | 2020-12-08 10:44 | PCM.PN ---
- General Info Date of Service: 12/08/20 Admission Dx/Problem (Free Text): Admission Diagnosis/Problem Admission Diagnosis/Problem GI bleed not requiring more than 4 units of blood in 24 hours, ICU, or surgery Subjective Update: patient stable. He denies blood per rectum during prep. Otherwise feels well Functional Status: Reports: Ambulating, Urinating - Review of Systems General: Reports: No Symptoms HEENT: Reports: No Symptoms Pulmonary: Reports: No Symptoms Cardiovascular: Reports: No Symptoms Gastrointestinal: Reports: Hematochezia Genitourinary: Reports: No Symptoms Musculoskeletal: Reports: No Symptoms Skin: Reports: No Symptoms Neurological: Reports: No Symptoms - Patient Data Vitals - Most Recent: Last Vital Signs Temp 98.1 F 12/08/20 07:49 Pulse 71 12/08/20 07:49 Resp 16 12/08/20 07:49 BP 98/79 12/08/20 07:49 Pulse Ox 100 12/08/20 08:12 Orthostatic Blood Pressure [ 77/52 Sitting] Orthostatic Blood Pressure [ 86/65 Standing] Orthostatic Blood Pressure [ 106/58 Supine] Weight - Most Recent: 81.783 kg I&O - Last 24 Hours: Intake & Output 12/07/20 12/08/20 12/08/20 22:59 06:59 14:59 Intake Total 1605 777 Output Total 1300 800 Balance 305 -23 Lab Results Last 24 Hours: Laboratory Results - last 24 hr 12/07/20 12/07/20 12/07/20 Range/Units 06:09 06:09 11:23 WBC (4.23-9.07) K/mm3 RBC (4.63-6.08) M/mm3 Hgb (13.7-17.5) gm/dl Hct (40.1-51.0) % MCV (79.0-92.2) fl MCH (25.7-32.2) pg MCHC (32.2-35.5) g/dl RDW Std Deviation (35.1-43.9) fL Plt Count (163-337) K/mm3 MPV (9.4-12.3) fl Neut % (Auto) (34.0-67.9) % Lymph % (Auto) (21.8-53.1) % Dickey % (Auto) (5.3-12.2) % Eos % (Auto) (0.8-7.0) Baso % (Auto) (0.1-1.2) % Neut # (Auto) (1.78-5.38) K/mm3 Lymph # (Auto) (1.32-3.57) K/mm3 Dickey # (Auto) (0.30-0.82) K/mm3 Eos # (Auto) (0.04-0.54) K/mm3 Baso # (Auto) (0.01-0.08) K/mm3 Manual Slide Review Sodium (136-145) mEq/L Potassium (3.5-5.1) mEq/L Chloride (98-107) mEq/L Carbon Dioxide (21-32) mEq/L Anion Gap (5-15) BUN (7-18) mg/dL Creatinine (0.7-1.3) mg/dL Est Cr Clr Drug Dosing mL/min Estimated GFR (MDRD) (>60) mL/min BUN/Creatinine Ratio (14-18) Glucose (83-115) mg/dL POC Glucose 133 H (70-99) mg/dL Calcium (8.5-10.1) mg/dL Total Bilirubin (0.2-1.0) mg/dL AST (15-37) U/L ALT (16-63) U/L Alkaline Phosphatase (46-116) U/L Total Protein (6.4-8.2) g/dl Albumin (3.4-5.0) g/dl Globulin gm/dL Albumin/Globulin Ratio (1-2) SARS-CoV-2 RNA (DULCE) (NEGATIVE) Crossmatch See Detail See Detail 12/07/20 12/07/20 12/07/20 Range/Units 15:15 15:43 16:35 WBC 6.51 (4.23-9.07) K/mm3 RBC 2.84 L (4.63-6.08) M/mm3 Hgb 7.8 L (13.7-17.5) gm/dl Hct 25.1 L (40.1-51.0) % MCV 88.4 (79.0-92.2) fl MCH 27.5 (25.7-32.2) pg MCHC 31.1 L (32.2-35.5) g/dl RDW Std Deviation 42.6 (35.1-43.9) fL Plt Count 180 (163-337) K/mm3 MPV 11.2 (9.4-12.3) fl Neut % (Auto) 58.1 (34.0-67.9) % Lymph % (Auto) 30.4 (21.8-53.1) % Dickey % (Auto) 7.8 (5.3-12.2) % Eos % (Auto) 2.6 (0.8-7.0) Baso % (Auto) 0.5 (0.1-1.2) % Neut # (Auto) 3.78 (1.78-5.38) K/mm3 Lymph # (Auto) 1.98 (1.32-3.57) K/mm3 Dickey # (Auto) 0.51 (0.30-0.82) K/mm3 Eos # (Auto) 0.17 (0.04-0.54) K/mm3 Baso # (Auto) 0.03 (0.01-0.08) K/mm3 Manual Slide Review Abnormal smear Sodium (136-145) mEq/L Potassium (3.5-5.1) mEq/L Chloride (98-107) mEq/L Carbon Dioxide (21-32) mEq/L Anion Gap (5-15) BUN (7-18) mg/dL Creatinine (0.7-1.3) mg/dL Est Cr Clr Drug Dosing mL/min Estimated GFR (MDRD) (>60) mL/min BUN/Creatinine Ratio (14-18) Glucose (83-115) mg/dL POC Glucose 132 H (70-99) mg/dL Calcium (8.5-10.1) mg/dL Total Bilirubin (0.2-1.0) mg/dL AST (15-37) U/L ALT (16-63) U/L Alkaline Phosphatase (46-116) U/L Total Protein (6.4-8.2) g/dl Albumin (3.4-5.0) g/dl Globulin gm/dL Albumin/Globulin Ratio (1-2) SARS-CoV-2 RNA (DULCE) Negative (NEGATIVE) Crossmatch 12/07/20 12/08/20 12/08/20 Range/Units 21:16 00:55 03:57 WBC (4.23-9.07) K/mm3 RBC (4.63-6.08) M/mm3 Hgb (13.7-17.5) gm/dl Hct (40.1-51.0) % MCV (79.0-92.2) fl MCH (25.7-32.2) pg MCHC (32.2-35.5) g/dl RDW Std Deviation (35.1-43.9) fL Plt Count (163-337) K/mm3 MPV (9.4-12.3) fl Neut % (Auto) (34.0-67.9) % Lymph % (Auto) (21.8-53.1) % Dickey % (Auto) (5.3-12.2) % Eos % (Auto) (0.8-7.0) Baso % (Auto) (0.1-1.2) % Neut # (Auto) (1.78-5.38) K/mm3 Lymph # (Auto) (1.32-3.57) K/mm3 Dickey # (Auto) (0.30-0.82) K/mm3 Eos # (Auto) (0.04-0.54) K/mm3 Baso # (Auto) (0.01-0.08) K/mm3 Manual Slide Review Sodium (136-145) mEq/L Potassium (3.5-5.1) mEq/L Chloride (98-107) mEq/L Carbon Dioxide (21-32) mEq/L Anion Gap (5-15) BUN (7-18) mg/dL Creatinine (0.7-1.3) mg/dL Est Cr Clr Drug Dosing mL/min Estimated GFR (MDRD) (>60) mL/min BUN/Creatinine Ratio (14-18) Glucose (83-115) mg/dL POC Glucose 172 H 145 H 134 H (70-99) mg/dL Calcium (8.5-10.1) mg/dL Total Bilirubin (0.2-1.0) mg/dL AST (15-37) U/L ALT (16-63) U/L Alkaline Phosphatase (46-116) U/L Total Protein (6.4-8.2) g/dl Albumin (3.4-5.0) g/dl Globulin gm/dL Albumin/Globulin Ratio (1-2) SARS-CoV-2 RNA (DULCE) (NEGATIVE) Crossmatch 12/08/20 12/08/20 12/08/20 Range/Units 05:14 07:15 08:47 WBC 5.59 (4.23-9.07) K/mm3 RBC 2.35 L (4.63-6.08) M/mm3 Hgb 6.4 L* 6.8 L* (13.7-17.5) gm/dl Hct 20.8 L 22.0 L (40.1-51.0) % MCV 88.5 (79.0-92.2) fl MCH 27.2 (25.7-32.2) pg MCHC 30.8 L (32.2-35.5) g/dl RDW Std Deviation 42.6 (35.1-43.9) fL Plt Count 138 L (163-337) K/mm3 MPV 11.6 (9.4-12.3) fl Neut % (Auto) 55.6 (34.0-67.9) % Lymph % (Auto) 32.4 (21.8-53.1) % Dickey % (Auto) 7.7 (5.3-12.2) % Eos % (Auto) 3.4 (0.8-7.0) Baso % (Auto) 0.5 (0.1-1.2) % Neut # (Auto) 3.11 (1.78-5.38) K/mm3 Lymph # (Auto) 1.81 (1.32-3.57) K/mm3 Dickey # (Auto) 0.43 (0.30-0.82) K/mm3 Eos # (Auto) 0.19 (0.04-0.54) K/mm3 Baso # (Auto) 0.03 (0.01-0.08) K/mm3 Manual Slide Review Abnormal smear Sodium 144 (136-145) mEq/L Potassium 3.7 (3.5-5.1) mEq/L Chloride 108 H (98-107) mEq/L Carbon Dioxide 25 (21-32) mEq/L Anion Gap 14.7 (5-15) BUN 11 (7-18) mg/dL Creatinine 1.1 (0.7-1.3) mg/dL Est Cr Clr Drug Dosing 57.13 mL/min Estimated GFR (MDRD) > 60 (>60) mL/min BUN/Creatinine Ratio 10.0 L (14-18) Glucose 169 H (83-115) mg/dL POC Glucose (70-99) mg/dL Calcium 8.0 L (8.5-10.1) mg/dL Total Bilirubin 0.4 (0.2-1.0) mg/dL AST 14 L (15-37) U/L ALT 17 (16-63) U/L Alkaline Phosphatase 99 (46-116) U/L Total Protein 5.6 L (6.4-8.2) g/dl Albumin 2.9 L (3.4-5.0) g/dl Globulin 2.7 gm/dL Albumin/Globulin Ratio 1.1 (1-2) SARS-CoV-2 RNA (DULCE) (NEGATIVE) Crossmatch Med Orders - Current: Current Medications Acetaminophen (Acetaminophen 325 Mg Tab) 650 mg PO Q4H PRN PRN Reason: Fever Albuterol/Ipratropium (Albuterol/Ipratropium 3.0-0.5 Mg/3 Ml Neb Soln) 3 ml NEB Q6HRRT PRN PRN Reason: Shortness of Breath Last Admin: 12/08/20 08:10 Dose: 3 ml Documented by: Atorvastatin Calcium (Atorvastatin 40 Mg Tab) 20 mg PO DAILY [facility] Fluticasone Propionate (Fluticasone Propionate Nasal Everly 16 Gm Bottle) gm NASBOTH BID PRN PRN Reason: Congestion Hydromorphone HCl (Hydromorphone 0.5 Mg/0.5 Ml Syringe) 0.5 mg IVPUSH Q4H PRN PRN Reason: Abdominal Pain Lactated Ringer's (Ringers, Lactated) 1,000 mls @ 70 mls/hr IV ASDIRECTED [facility] Insulin Human Lispro (Insulin Lispro 100 Unit/Ml 10 Ml Vial) 0 unit SUBCUT TIDPC [facility]; Protocol Last Admin: 12/07/20 19:05 Dose: Not Given Documented by: Levothyroxine Sodium (Levothyroxine 50 Mcg Tab) 50 mcg PO DAILY [facility] Ondansetron HCl (Ondansetron 4 Mg/2 Ml Sdv) 4 mg IVPUSH Q8H PRN PRN Reason: Nausea Ondansetron HCl (Ondansetron 4 Mg/2 Ml Sdv) 4 mg IVPUSH ONETIME PRN PRN Reason: Nausea/Vomiting Pantoprazole Sodium (Pantoprazole 40 Mg Vial) 40 mg IVPUSH Q12H [facility] Last Admin: 12/08/20 06:44 Dose: 40 mg Documented by: Discontinued Medications Fentanyl (Fentanyl 100 Mcg/2 Ml Sdv) Confirm Administered Dose 100 mcg .ROUTE .[facility] ONE Stop: 12/08/20 08:25 Sodium Chloride (Normal Saline) 1,000 mls @ 999 mls/hr IV ONETIME ONE Stop: 12/07/20 00:50 Last Admin: 12/06/20 23:55 Dose: 999 mls/hr Documented by: Sodium Chloride (Normal Saline) 1,000 mls @ 150 mls/hr IV ASDIRECTED [facility] Last Admin: 12/07/20 01:35 Dose: 150 mls/hr Documented by: Sodium Chloride (Normal Saline) 1,000 mls @ 999 mls/hr IV ONETIME ONE Stop: 12/07/20 03:53 Last Admin: 12/07/20 04:49 Dose: Not Given Documented by: Sodium Chloride (Normal Saline) 1,000 mls @ 150 mls/hr IV ASDIRECTED [facility] Last Admin: 12/07/20 04:48 Dose: 150 mls/hr Documented by: Dextrose/Sodium Chloride (Dextrose 5%-1/2 Ns) 1,000 mls @ 75 mls/hr IV ASDIRECT [facility] Last Admin: 12/07/20 20:31 Dose: 75 mls/hr Documented by: Lidocaine HCl (Xylocaine-Mpf 1%) Confirm Administered Dose 4 mls @ as directed .ROUTE .[facility] ONE Stop: 12/08/20 08:24 Sodium Chloride (Normal Saline) Confirm Administered Dose 1,000 mls @ as directed .ROUTE .[facility] ONE Stop: 12/08/20 08:24 Lactated Ringer's (Ringers, Lactated) Confirm Administered Dose 1,000 mls @ as directed .ROUTE .[facility] ONE Stop: 12/08/20 09:55 Insulin Human Regular (Insulin Regular, Human 100 Units/Ml 3 Ml Vial) 5 unit IV ONETIME STA Stop: 12/07/20 01:26 Last Admin: 12/07/20 01:35 Dose: 5 unit Documented by: Miscellaneous Medication (Phenylephrine Hcl In 0.9% Nacl 1 Mg/10 Ml Syringe) Confirm Administered Dose 1 mg .ROUTE .[facility] ONE Stop: 12/08/20 08:24 Non-Formulary Medication (Albuterol Sulfate) 2 puff INH Q6H PRN PRN Reason: Shortness of Breath Polyethylene Glycol/Electrolytes (Polyethylene Glycol/Electrolytes 4,000 Ml Bottle) 4,000 ml PO ONETIME ONE Stop: 12/07/20 18:05 Last Admin: 12/07/20 19:03 Dose: 4,000 ml Documented by: Propofol (Propofol 200 Mg/20 Ml Sdv) Confirm Administered Dose 400 mg .ROUTE .[facility] ONE Stop: 12/08/20 08:24 - Exam General: Alert, Oriented, Cooperative Lungs: Clear to Auscultation, Normal Respiratory Effort Cardiovascular: Regular Rate, Regular Rhythm GI/Abdominal Exam: Soft, Non-Tender, No Organomegaly, No Distention - Patient Data Lab Results Last 24 hrs: Laboratory Results - last 24 hr 12/07/20 12/07/20 12/07/20 Range/Units 06:09 06:09 11:23 WBC (4.23-9.07) K/mm3 RBC (4.63-6.08) M/mm3 Hgb (13.7-17.5) gm/dl Hct (40.1-51.0) % MCV (79.0-92.2) fl MCH (25.7-32.2) pg MCHC (32.2-35.5) g/dl RDW Std Deviation (35.1-43.9) fL Plt Count (163-337) K/mm3 MPV (9.4-12.3) fl Neut % (Auto) (34.0-67.9) % Lymph % (Auto) (21.8-53.1) % Dickey % (Auto) (5.3-12.2) % Eos % (Auto) (0.8-7.0) Baso % (Auto) (0.1-1.2) % Neut # (Auto) (1.78-5.38) K/mm3 Lymph # (Auto) (1.32-3.57) K/mm3 Dickey # (Auto) (0.30-0.82) K/mm3 Eos # (Auto) (0.04-0.54) K/mm3 Baso # (Auto) (0.01-0.08) K/mm3 Manual Slide Review Sodium (136-145) mEq/L Potassium (3.5-5.1) mEq/L Chloride (98-107) mEq/L Carbon Dioxide (21-32) mEq/L Anion Gap (5-15) BUN (7-18) mg/dL Creatinine (0.7-1.3) mg/dL Est Cr Clr Drug Dosing mL/min Estimated GFR (MDRD) (>60) mL/min BUN/Creatinine Ratio (14-18) Glucose (83-115) mg/dL POC Glucose 133 H (70-99) mg/dL Calcium (8.5-10.1) mg/dL Total Bilirubin (0.2-1.0) mg/dL AST (15-37) U/L ALT (16-63) U/L Alkaline Phosphatase (46-116) U/L Total Protein (6.4-8.2) g/dl Albumin (3.4-5.0) g/dl Globulin gm/dL Albumin/Globulin Ratio (1-2) SARS-CoV-2 RNA (DULCE) (NEGATIVE) Crossmatch See Detail See Detail 12/07/20 12/07/20 12/07/20 Range/Units 15:15 15:43 16:35 WBC 6.51 (4.23-9.07) K/mm3 RBC 2.84 L (4.63-6.08) M/mm3 Hgb 7.8 L (13.7-17.5) gm/dl Hct 25.1 L (40.1-51.0) % MCV 88.4 (79.0-92.2) fl MCH 27.5 (25.7-32.2) pg MCHC 31.1 L (32.2-35.5) g/dl RDW Std Deviation 42.6 (35.1-43.9) fL Plt Count 180 (163-337) K/mm3 MPV 11.2 (9.4-12.3) fl Neut % (Auto) 58.1 (34.0-67.9) % Lymph % (Auto) 30.4 (21.8-53.1) % Dickey % (Auto) 7.8 (5.3-12.2) % Eos % (Auto) 2.6 (0.8-7.0) Baso % (Auto) 0.5 (0.1-1.2) % Neut # (Auto) 3.78 (1.78-5.38) K/mm3 Lymph # (Auto) 1.98 (1.32-3.57) K/mm3 Dickey # (Auto) 0.51 (0.30-0.82) K/mm3 Eos # (Auto) 0.17 (0.04-0.54) K/mm3 Baso # (Auto) 0.03 (0.01-0.08) K/mm3 Manual Slide Review Abnormal smear Sodium (136-145) mEq/L Potassium (3.5-5.1) mEq/L Chloride (98-107) mEq/L Carbon Dioxide (21-32) mEq/L Anion Gap (5-15) BUN (7-18) mg/dL Creatinine (0.7-1.3) mg/dL Est Cr Clr Drug Dosing mL/min Estimated GFR (MDRD) (>60) mL/min BUN/Creatinine Ratio (14-18) Glucose (83-115) mg/dL POC Glucose 132 H (70-99) mg/dL Calcium (8.5-10.1) mg/dL Total Bilirubin (0.2-1.0) mg/dL AST (15-37) U/L ALT (16-63) U/L Alkaline Phosphatase (46-116) U/L Total Protein (6.4-8.2) g/dl Albumin (3.4-5.0) g/dl Globulin gm/dL Albumin/Globulin Ratio (1-2) SARS-CoV-2 RNA (DULCE) Negative (NEGATIVE) Crossmatch 12/07/20 12/08/20 12/08/20 Range/Units 21:16 00:55 03:57 WBC (4.23-9.07) K/mm3 RBC (4.63-6.08) M/mm3 Hgb (13.7-17.5) gm/dl Hct (40.1-51.0) % MCV (79.0-92.2) fl MCH (25.7-32.2) pg MCHC (32.2-35.5) g/dl RDW Std Deviation (35.1-43.9) fL Plt Count (163-337) K/mm3 MPV (9.4-12.3) fl Neut % (Auto) (34.0-67.9) % Lymph % (Auto) (21.8-53.1) % Dickey % (Auto) (5.3-12.2) % Eos % (Auto) (0.8-7.0) Baso % (Auto) (0.1-1.2) % Neut # (Auto) (1.78-5.38) K/mm3 Lymph # (Auto) (1.32-3.57) K/mm3 Dickey # (Auto) (0.30-0.82) K/mm3 Eos # (Auto) (0.04-0.54) K/mm3 Baso # (Auto) (0.01-0.08) K/mm3 Manual Slide Review Sodium (136-145) mEq/L Potassium (3.5-5.1) mEq/L Chloride (98-107) mEq/L Carbon Dioxide (21-32) mEq/L Anion Gap (5-15) BUN (7-18) mg/dL Creatinine (0.7-1.3) mg/dL Est Cr Clr Drug Dosing mL/min Estimated GFR (MDRD) (>60) mL/min BUN/Creatinine Ratio (14-18) Glucose (83-115) mg/dL POC Glucose 172 H 145 H 134 H (70-99) mg/dL Calcium (8.5-10.1) mg/dL Total Bilirubin (0.2-1.0) mg/dL AST (15-37) U/L ALT (16-63) U/L Alkaline Phosphatase (46-116) U/L Total Protein (6.4-8.2) g/dl Albumin (3.4-5.0) g/dl Globulin gm/dL Albumin/Globulin Ratio (1-2) SARS-CoV-2 RNA (DULCE) (NEGATIVE) Crossmatch 12/08/20 12/08/20 12/08/20 Range/Units 05:14 07:15 08:47 WBC 5.59 (4.23-9.07) K/mm3 RBC 2.35 L (4.63-6.08) M/mm3 Hgb 6.4 L* 6.8 L* (13.7-17.5) gm/dl Hct 20.8 L 22.0 L (40.1-51.0) % MCV 88.5 (79.0-92.2) fl MCH 27.2 (25.7-32.2) pg MCHC 30.8 L (32.2-35.5) g/dl RDW Std Deviation 42.6 (35.1-43.9) fL Plt Count 138 L (163-337) K/mm3 MPV 11.6 (9.4-12.3) fl Neut % (Auto) 55.6 (34.0-67.9) % Lymph % (Auto) 32.4 (21.8-53.1) % Dickey % (Auto) 7.7 (5.3-12.2) % Eos % (Auto) 3.4 (0.8-7.0) Baso % (Auto) 0.5 (0.1-1.2) % Neut # (Auto) 3.11 (1.78-5.38) K/mm3 Lymph # (Auto) 1.81 (1.32-3.57) K/mm3 Dickey # (Auto) 0.43 (0.30-0.82) K/mm3 Eos # (Auto) 0.19 (0.04-0.54) K/mm3 Baso # (Auto) 0.03 (0.01-0.08) K/mm3 Manual Slide Review Abnormal smear Sodium 144 (136-145) mEq/L Potassium 3.7 (3.5-5.1) mEq/L Chloride 108 H (98-107) mEq/L Carbon Dioxide 25 (21-32) mEq/L Anion Gap 14.7 (5-15) BUN 11 (7-18) mg/dL Creatinine 1.1 (0.7-1.3) mg/dL Est Cr Clr Drug Dosing 57.13 mL/min Estimated GFR (MDRD) > 60 (>60) mL/min BUN/Creatinine Ratio 10.0 L (14-18) Glucose 169 H (83-115) mg/dL POC Glucose (70-99) mg/dL Calcium 8.0 L (8.5-10.1) mg/dL Total Bilirubin 0.4 (0.2-1.0) mg/dL AST 14 L (15-37) U/L ALT 17 (16-63) U/L Alkaline Phosphatase 99 (46-116) U/L Total Protein 5.6 L (6.4-8.2) g/dl Albumin 2.9 L (3.4-5.0) g/dl Globulin 2.7 gm/dL Albumin/Globulin Ratio 1.1 (1-2) SARS-CoV-2 RNA (DULCE) (NEGATIVE) Crossmatch Result Diagrams: 12/08/20 07:15 12/08/20 08:47 Sepsis Event Note - Evaluation Sepsis Screening Result: No Definite Risk - Focused Exam Vital Signs: Vital Signs Temp Pulse Resp BP Pulse Ox Pulse Ox 12/08/20 08:12 100 12/08/20 07:49 98.1 F 71 16 98/79 97 12/08/20 03:53 97.9 F 72 12 103/67 97 - Problem List Review Problem List Initiated/Reviewed/Updated: No - My Orders Last 24 Hours: My Active Orders 12/07/20 Dinner Clear Liquid Diet [DIET] 12/08/20 Breakfast NPO After Midnight [Nothing per Oral After Midnight Diet] [DIET] 12/08/20 09:00 Schedule Procedure [COMM] Routine - Assessment Assessment:: HD2 GI bleeding in the context of recent colonoscopy with polypectomy on 11/27. EGD and Colonoscopy done today: EGD - no active bleeding or stigmata or recent bleeding in the esophagus, stomach or duodenum. There was a small, 5mm fresh superficial esophageal tear at the GE junction from scope insertion. This was watched, promptly stopped oozing. No intervention was necessary. Colonoscopy: retained prep was clear throughout. Largest polypectomy site in the ascending colon identified and appeared to be healing well. no stigmata of bleeding. Small polypectomy site in the ascending colon appeared slightly irritated without any signs of active or recent bleeding. One endoscopic clip applied out of abundance of caution. Rest of colon had no signs of any stigmata of bleeding. - Plan Plan:: Plan - Patient will receive 1 unit of blood today - Ok to have clear liquid diet - CBC after transfusion as long as patient remains stable - May be able to be discharged to home tomorrow if Hgb remains >7 after transfusion. - IVF to 50.
--- NOTE | 2020-12-08 11:33 | PROC ---
DATE OF OPERATION: 12/08/2020 SURGEON: Hamzah Barnett MD PREOPERATIVE DIAGNOSIS: Gastrointestinal bleeding. POSTOPERATIVE DIAGNOSES: 1. One small polyp in the fundus of stomach. Not removed 2. Healing, non-bleeding polypectomy sites, few medium sized non-bleeding diverticulum, Grade II internal hemorrhoids, non-bleeding. PROCEDURES: 1. Esophagogastroduodenoscopy. 2. Colonoscopy. ANESTHESIA: Monitored anesthesia care. ESTIMATED BLOOD LOSS: Minimal. INDICATION AND CONSENT: The patient is a 75-year-old male who underwent colonoscopy for surveillance on 11/27/2020. The patient did well after that. 10 polyps were removed, one was large, around 1.5 cm in the ascending colon that was removed with hot snare. EBL was minimal at the time. The patient went home and was doing well until 12/06/2020 when patient had painless red blood per rectum. The patient presented to the emergency department and was admitted. Hemoglobin at admission was 10, but on post hospital day 1, it dropped to 7.3, therefore, I was asked to see the patient. I saw the patient. The patient was totally asymptomatic and had not had any bleeding since admission. However, due to drop of hemoglobin and recent colonoscopy with polypectomy, I recommended repeat evaluation with EGD and colonoscopy to make sure there was no source of bleeding, particularly from polypectomy sites. Risks, benefits, and alternatives were discussed for the procedure. Informed consent was obtained. DETAILS OF PROCEDURE: The patient was taken to the procedure room, placed in left lateral decubitus position. Time-out was performed. Monitored anesthesia care was induced, and then we began with EGD. A therapeutic scope was inserted into the mouth, and esophagus was examined while we were advancing the scope. There were no areas of bleeding in the esophagus. We went all the way to the second portion of the duodenum, which was normal. Stomach was normal. There was 1 small polyp in the fundus of the stomach that did not appear to be bleeding. There were no ulcers. There were no other areas or stigmata of bleeding in the stomach or duodenum. Went back into the GE junction. At this area, we found a small 5 mm mucosal tear at the GE junction that was oozing red blood. This was a fresh tear and likely was torn at the time of scope insertion as the patient was coughing. We watched this area. The bleeding promptly stopped within less than a minute, Therefore, no intervention was necessary. We went back to the stomach. There were no other issues. Air was suctioned out, and scope was removed. We turned our attention to the colonoscopy. Perianal and digital rectal exams were normal. We inserted the scope and taking all the way to the cecum. The appendiceal orifice and ileocecal valve were photographed. We attempted to pass the scope into the terminal ileum. The scope entered the terminal ileum briefly, and I was able to glance into the terminal ileum. There was no blood in there and fluid in the terminal ileum was not bloody at all. Then, we started to withdraw the scope. We got to the area in the ascending colon that we removed a large polyp. This area was tattooed so was readily identifiable. It was healing well. There was no stigmata of bleeding at all. Adjacent to this area, there was another about 5 mm polyp that we had to remove. This polypectomy site did not appear to be actively bleeding or did not have any clot, but it was still slightly red and there was a small reddened area towards its center. Therefore, out of abundance of caution, I placed 1 clip in this area. There was no bleeding pre- or post-clip placement. I do not believe this area was an area of active bleeding. We continued to withdraw the scope, examining the mucosa. We did not find any other areas of bleeding. The patient had few medium-sized diverticulosis in the sigmoid colon that were not bleeding. On retroflexion in the rectum, there was non-bleeding internal hemorrhoid likely grade 2. At this point, then scope was advanced to the sigmoid colon. Air was suctioned out, and procedure was concluded. Therefore, from this exam, we did not find any areas of active bleeding. The patient to be monitored, transfused, and allowed to return home. He remained stable. MMODAL /[id number]
[2020-12-08] MEDS: Insulin Lispro 100 UNIT/ML 10 ML Vial SUBCUT SCH ×3 (11:34→18:01)
[2020-12-08] MEDS ORDERED: Sodium Chloride 0.9% 250 ML IV ONE (11:37)
[2020-12-08] MEDS ORDERED: Sodium Chloride 0.9% 250 ML IV SCH (12:00)
[2020-12-08] MEDS: LEVOTHYROXINE 50 MCG PO SCH (13:13)
--- NOTE | 2020-12-08 14:08 | PCM.PN ---
- General Info Date of Service: 12/08/20 Admission Dx/Problem (Free Text): Admission Diagnosis/Problem Admission Diagnosis/Problem GI bleed not requiring more than 4 units of blood in 24 hours, ICU, or surgery Subjective Update: Patient is a 75-year-old presents to the emergency department after developing bright red blood per rectum last evening. Patient reported in the emergency department that he had 4-5 episodes of hematochezia. Does not have any bleeding. Patient underwent EGD and colonoscopy today by Dr. Barnett. Hemoglobin 6.8. - Review of Systems Systems Review Comment:: General: Reports: No Symptoms HEENT: Reports: No Symptoms Pulmonary: Reports: No Symptoms Cardiovascular: Reports: No Symptoms Gastrointestinal: Reports: Hematochezia Genitourinary: Reports: No Symptoms Musculoskeletal: Reports: No Symptoms Skin: Reports: No Symptoms Neurological: Reports: No Symptoms - Patient Data Vitals - Most Recent: Last Vital Signs Temp 36.6 C 12/08/20 12:36 Pulse 72 12/08/20 13:32 Resp 20 12/08/20 12:36 BP 83/20 L 12/08/20 13:32 Pulse Ox 97 12/08/20 13:32 Orthostatic Blood Pressure [ 77/52 Sitting] Orthostatic Blood Pressure [ 86/65 Standing] Orthostatic Blood Pressure [ 106/58 Supine] Weight - Most Recent: 81.783 kg I&O - Last 24 Hours: Intake & Output 12/07/20 12/08/20 12/08/20 22:59 06:59 14:59 Intake Total 1605 777 0 Output Total 1300 800 Balance 305 -23 0 Lab Results Last 24 Hours: Laboratory Results - last 24 hr 12/07/20 12/07/20 12/07/20 Range/Units 06:09 06:09 15:15 WBC 6.51 (4.23-9.07) K/mm3 RBC 2.84 L (4.63-6.08) M/mm3 Hgb 7.8 L (13.7-17.5) gm/dl Hct 25.1 L (40.1-51.0) % MCV 88.4 (79.0-92.2) fl MCH 27.5 (25.7-32.2) pg MCHC 31.1 L (32.2-35.5) g/dl RDW Std Deviation 42.6 (35.1-43.9) fL Plt Count 180 (163-337) K/mm3 MPV 11.2 (9.4-12.3) fl Neut % (Auto) 58.1 (34.0-67.9) % Lymph % (Auto) 30.4 (21.8-53.1) % Banks % (Auto) 7.8 (5.3-12.2) % Eos % (Auto) 2.6 (0.8-7.0) Baso % (Auto) 0.5 (0.1-1.2) % Neut # (Auto) 3.78 (1.78-5.38) K/mm3 Lymph # (Auto) 1.98 (1.32-3.57) K/mm3 Banks # (Auto) 0.51 (0.30-0.82) K/mm3 Eos # (Auto) 0.17 (0.04-0.54) K/mm3 Baso # (Auto) 0.03 (0.01-0.08) K/mm3 Manual Slide Review Abnormal smear Sodium (136-145) mEq/L Potassium (3.5-5.1) mEq/L Chloride (98-107) mEq/L Carbon Dioxide (21-32) mEq/L Anion Gap (5-15) BUN (7-18) mg/dL Creatinine (0.7-1.3) mg/dL Est Cr Clr Drug Dosing mL/min Estimated GFR (MDRD) (>60) mL/min BUN/Creatinine Ratio (14-18) Glucose (83-115) mg/dL POC Glucose (70-99) mg/dL Calcium (8.5-10.1) mg/dL Total Bilirubin (0.2-1.0) mg/dL AST (15-37) U/L ALT (16-63) U/L Alkaline Phosphatase (46-116) U/L Total Protein (6.4-8.2) g/dl Albumin (3.4-5.0) g/dl Globulin gm/dL Albumin/Globulin Ratio (1-2) SARS-CoV-2 RNA (DULCE) (NEGATIVE) Blood Type B POSITIVE Gel Antibody Screen Positive Crossmatch See Detail See Detail 12/07/20 12/07/20 12/07/20 Range/Units 15:43 16:35 21:16 WBC (4.23-9.07) K/mm3 RBC (4.63-6.08) M/mm3 Hgb (13.7-17.5) gm/dl Hct (40.1-51.0) % MCV (79.0-92.2) fl MCH (25.7-32.2) pg MCHC (32.2-35.5) g/dl RDW Std Deviation (35.1-43.9) fL Plt Count (163-337) K/mm3 MPV (9.4-12.3) fl Neut % (Auto) (34.0-67.9) % Lymph % (Auto) (21.8-53.1) % Banks % (Auto) (5.3-12.2) % Eos % (Auto) (0.8-7.0) Baso % (Auto) (0.1-1.2) % Neut # (Auto) (1.78-5.38) K/mm3 Lymph # (Auto) (1.32-3.57) K/mm3 Banks # (Auto) (0.30-0.82) K/mm3 Eos # (Auto) (0.04-0.54) K/mm3 Baso # (Auto) (0.01-0.08) K/mm3 Manual Slide Review Sodium (136-145) mEq/L Potassium (3.5-5.1) mEq/L Chloride (98-107) mEq/L Carbon Dioxide (21-32) mEq/L Anion Gap (5-15) BUN (7-18) mg/dL Creatinine (0.7-1.3) mg/dL Est Cr Clr Drug Dosing mL/min Estimated GFR (MDRD) (>60) mL/min BUN/Creatinine Ratio (14-18) Glucose (83-115) mg/dL POC Glucose 132 H 172 H (70-99) mg/dL Calcium (8.5-10.1) mg/dL Total Bilirubin (0.2-1.0) mg/dL AST (15-37) U/L ALT (16-63) U/L Alkaline Phosphatase (46-116) U/L Total Protein (6.4-8.2) g/dl Albumin (3.4-5.0) g/dl Globulin gm/dL Albumin/Globulin Ratio (1-2) SARS-CoV-2 RNA (DULCE) Negative (NEGATIVE) Blood Type Gel Antibody Screen Crossmatch 12/08/20 12/08/20 12/08/20 Range/Units 00:55 03:57 05:14 WBC 5.59 (4.23-9.07) K/mm3 RBC 2.35 L (4.63-6.08) M/mm3 Hgb 6.4 L* (13.7-17.5) gm/dl Hct 20.8 L (40.1-51.0) % MCV 88.5 (79.0-92.2) fl MCH 27.2 (25.7-32.2) pg MCHC 30.8 L (32.2-35.5) g/dl RDW Std Deviation 42.6 (35.1-43.9) fL Plt Count 138 L (163-337) K/mm3 MPV 11.6 (9.4-12.3) fl Neut % (Auto) 55.6 (34.0-67.9) % Lymph % (Auto) 32.4 (21.8-53.1) % Banks % (Auto) 7.7 (5.3-12.2) % Eos % (Auto) 3.4 (0.8-7.0) Baso % (Auto) 0.5 (0.1-1.2) % Neut # (Auto) 3.11 (1.78-5.38) K/mm3 Lymph # (Auto) 1.81 (1.32-3.57) K/mm3 Banks # (Auto) 0.43 (0.30-0.82) K/mm3 Eos # (Auto) 0.19 (0.04-0.54) K/mm3 Baso # (Auto) 0.03 (0.01-0.08) K/mm3 Manual Slide Review Abnormal smear Sodium (136-145) mEq/L Potassium (3.5-5.1) mEq/L Chloride (98-107) mEq/L Carbon Dioxide (21-32) mEq/L Anion Gap (5-15) BUN (7-18) mg/dL Creatinine (0.7-1.3) mg/dL Est Cr Clr Drug Dosing mL/min Estimated GFR (MDRD) (>60) mL/min BUN/Creatinine Ratio (14-18) Glucose (83-115) mg/dL POC Glucose 145 H 134 H (70-99) mg/dL Calcium (8.5-10.1) mg/dL Total Bilirubin (0.2-1.0) mg/dL AST (15-37) U/L ALT (16-63) U/L Alkaline Phosphatase (46-116) U/L Total Protein (6.4-8.2) g/dl Albumin (3.4-5.0) g/dl Globulin gm/dL Albumin/Globulin Ratio (1-2) SARS-CoV-2 RNA (DULCE) (NEGATIVE) Blood Type Gel Antibody Screen Crossmatch 12/08/20 12/08/20 12/08/20 Range/Units 07:15 08:47 11:31 WBC (4.23-9.07) K/mm3 RBC (4.63-6.08) M/mm3 Hgb 6.8 L* (13.7-17.5) gm/dl Hct 22.0 L (40.1-51.0) % MCV (79.0-92.2) fl MCH (25.7-32.2) pg MCHC (32.2-35.5) g/dl RDW Std Deviation (35.1-43.9) fL Plt Count (163-337) K/mm3 MPV (9.4-12.3) fl Neut % (Auto) (34.0-67.9) % Lymph % (Auto) (21.8-53.1) % Banks % (Auto) (5.3-12.2) % Eos % (Auto) (0.8-7.0) Baso % (Auto) (0.1-1.2) % Neut # (Auto) (1.78-5.38) K/mm3 Lymph # (Auto) (1.32-3.57) K/mm3 Banks # (Auto) (0.30-0.82) K/mm3 Eos # (Auto) (0.04-0.54) K/mm3 Baso # (Auto) (0.01-0.08) K/mm3 Manual Slide Review Sodium 144 (136-145) mEq/L Potassium 3.7 (3.5-5.1) mEq/L Chloride 108 H (98-107) mEq/L Carbon Dioxide 25 (21-32) mEq/L Anion Gap 14.7 (5-15) BUN 11 (7-18) mg/dL Creatinine 1.1 (0.7-1.3) mg/dL Est Cr Clr Drug Dosing 57.13 mL/min Estimated GFR (MDRD) > 60 (>60) mL/min BUN/Creatinine Ratio 10.0 L (14-18) Glucose 169 H (83-115) mg/dL POC Glucose 136 H (70-99) mg/dL Calcium 8.0 L (8.5-10.1) mg/dL Total Bilirubin 0.4 (0.2-1.0) mg/dL AST 14 L (15-37) U/L ALT 17 (16-63) U/L Alkaline Phosphatase 99 (46-116) U/L Total Protein 5.6 L (6.4-8.2) g/dl Albumin 2.9 L (3.4-5.0) g/dl Globulin 2.7 gm/dL Albumin/Globulin Ratio 1.1 (1-2) SARS-CoV-2 RNA (DULCE) (NEGATIVE) Blood Type Gel Antibody Screen Crossmatch Med Orders - Current: Current Medications Acetaminophen (Acetaminophen 325 Mg Tab) 650 mg PO Q4H PRN PRN Reason: Fever Albuterol/Ipratropium (Albuterol/Ipratropium 3.0-0.5 Mg/3 Ml Neb Soln) 3 ml NEB Q6HRRT PRN PRN Reason: Shortness of Breath Last Admin: 12/08/20 08:10 Dose: 3 ml Documented by: Fluticasone Propionate (Fluticasone Propionate Nasal [place] 16 Gm Bottle) gm NASBOTH BID PRN PRN Reason: Congestion Hydromorphone HCl (Hydromorphone 0.5 Mg/0.5 Ml Syringe) 0.5 mg IVPUSH Q4H PRN PRN Reason: Abdominal Pain Lactated Ringer's (Ringers, Lactated) 1,000 mls @ 50 mls/hr IV ASDIRECTED WILLIE Sodium Chloride (Normal Saline) 250 mls @ 100 mls/hr IV ASDIRECTED WILLIE Last Admin: 12/08/20 12:24 Dose: 100 mls/hr Documented by: Insulin Human Lispro (Insulin Lispro 100 Unit/Ml 10 Ml Vial) 0 unit SUBCUT TIDPC [facility]; Protocol Last Admin: 12/08/20 13:15 Dose: Not Given Documented by: Ondansetron HCl (Ondansetron 4 Mg/2 Ml Sdv) 4 mg IVPUSH Q8H PRN PRN Reason: Nausea Ondansetron HCl (Ondansetron 4 Mg/2 Ml Sdv) 4 mg IVPUSH ONETIME PRN PRN Reason: Nausea/Vomiting Pantoprazole Sodium (Pantoprazole 40 Mg Vial) 40 mg IVPUSH Q12H [facility] Last Admin: 12/08/20 06:44 Dose: 40 mg Documented by: Atorvastatin 40 Mg (Tab*Pt Own Med*) 0 each PO DAILY [facility] Last Admin: 12/08/20 13:14 Dose: 1 each Documented by: Levothyroxine 50 Mcg (Tab *Pt Own Med*) 0 each PO ACBREAKFAST [facility] Last Admin: 12/08/20 13:13 Dose: 1 each Documented by: Discontinued Medications Fentanyl (Fentanyl 100 Mcg/2 Ml Sdv) Confirm Administered Dose 100 mcg .ROUTE .STK-MED ONE Stop: 12/08/20 08:25 Sodium Chloride (Normal Saline) 1,000 mls @ 999 mls/hr IV ONETIME ONE Stop: 12/07/20 00:50 Last Admin: 12/06/20 23:55 Dose: 999 mls/hr Documented by: Sodium Chloride (Normal Saline) 1,000 mls @ 150 mls/hr IV ASDIRECTED [facility] Last Admin: 12/07/20 01:35 Dose: 150 mls/hr Documented by: Sodium Chloride (Normal Saline) 1,000 mls @ 999 mls/hr IV ONETIME ONE Stop: 12/07/20 03:53 Last Admin: 12/07/20 04:49 Dose: Not Given Documented by: Sodium Chloride (Normal Saline) 1,000 mls @ 150 mls/hr IV ASDIRECTED [facility] Last Admin: 12/07/20 04:48 Dose: 150 mls/hr Documented by: Dextrose/Sodium Chloride (Dextrose 5%-1/2 Ns) 1,000 mls @ 75 mls/hr IV ASDIRECTED [facility] Last Admin: 12/07/20 20:31 Dose: 75 mls/hr Documented by: Lidocaine HCl (Xylocaine-Mpf 1%) Confirm Administered Dose 4 mls @ as directed .ROUTE .STK-MED ONE Stop: 12/08/20 08:24 Sodium Chloride (Normal Saline) Confirm Administered Dose 1,000 mls @ as directed .ROUTE .STK-MED ONE Stop: 12/08/20 08:24 Lactated Ringer's (Ringers, Lactated) Confirm Administered Dose 1,000 mls @ as directed .ROUTE .STK-MED ONE Stop: 12/08/20 09:55 Insulin Human Regular (Insulin Regular, Human 100 Units/Ml 3 Ml Vial) 5 unit IV ONETIME STA Stop: 12/07/20 01:26 Last Admin: 12/07/20 01:35 Dose: 5 unit Documented by: Miscellaneous Medication (Phenylephrine Hcl In 0.9% Nacl 1 Mg/10 Ml Syringe) Confirm Administered Dose 1 mg .ROUTE .STK-MED ONE Stop: 12/08/20 08:24 Non-Formulary Medication (Albuterol Sulfate) 2 puff INH Q6H PRN PRN Reason: Shortness of Breath Polyethylene Glycol/Electrolytes (Polyethylene Glycol/Electrolytes 4,000 Ml Bottle) 4,000 ml PO ONETIME ONE Stop: 12/07/20 18:05 Last Admin: 12/07/20 19:03 Dose: 4,000 ml Documented by: Propofol (Propofol 200 Mg/20 Ml Sdv) Confirm Administered Dose 400 mg .ROUTE .STK-MED ONE Stop: 12/08/20 08:24 - Exam Physical Findings Comments:: General: Alert, Oriented HEENT: Conjunctiva Clear, Hearing Intact, Mucosa Moist & [place] Neck: Supple, Trachea Midline Lungs: Clear to Auscultation, Normal Respiratory Effort Cardiovascular: Regular Rate, Regular Rhythm. No: Systolic Murmur GI/Abdominal Exam: Normal Bowel Sounds, Soft, Non-Tender, No Organomegaly, No Distention. No: Guarding, Rigid, Rebound, Tender, Splenomegaly Extremities: Normal Inspection Peripheral Pulses: 2+: Radial (L), Radial (R) Skin: Warm, Dry, Intact Neuro Extensive - Mental Status: Alert, Oriented x3, Other (gcs 15 ) - Patient Data Lab Results Last 24 hrs: Laboratory Results - last 24 hr 12/07/20 12/07/20 12/07/20 Range/Units 06:09 06:09 15:15 WBC 6.51 (4.23-9.07) K/mm3 RBC 2.84 L (4.63-6.08) M/mm3 Hgb 7.8 L (13.7-17.5) gm/dl Hct 25.1 L (40.1-51.0) % MCV 88.4 (79.0-92.2) fl MCH 27.5 (25.7-32.2) pg MCHC 31.1 L (32.2-35.5) g/dl RDW Std Deviation 42.6 (35.1-43.9) fL Plt Count 180 (163-337) K/mm3 MPV 11.2 (9.4-12.3) fl Neut % (Auto) 58.1 (34.0-67.9) % Lymph % (Auto) 30.4 (21.8-53.1) % Banks % (Auto) 7.8 (5.3-12.2) % Eos % (Auto) 2.6 (0.8-7.0) Baso % (Auto) 0.5 (0.1-1.2) % Neut # (Auto) 3.78 (1.78-5.38) K/mm3 Lymph # (Auto) 1.98 (1.32-3.57) K/mm3 Banks # (Auto) 0.51 (0.30-0.82) K/mm3 Eos # (Auto) 0.17 (0.04-0.54) K/mm3 Baso # (Auto) 0.03 (0.01-0.08) K/mm3 Manual Slide Review Abnormal smear Sodium (136-145) mEq/L Potassium (3.5-5.1) mEq/L Chloride (98-107) mEq/L Carbon Dioxide (21-32) mEq/L Anion Gap (5-15) BUN (7-18) mg/dL Creatinine (0.7-1.3) mg/dL Est Cr Clr Drug Dosing mL/min Estimated GFR (MDRD) (>60) mL/min BUN/Creatinine Ratio (14-18) Glucose (83-115) mg/dL POC Glucose (70-99) mg/dL Calcium (8.5-10.1) mg/dL Total Bilirubin (0.2-1.0) mg/dL AST (15-37) U/L ALT (16-63) U/L Alkaline Phosphatase (46-116) U/L Total Protein (6.4-8.2) g/dl Albumin (3.4-5.0) g/dl Globulin gm/dL Albumin/Globulin Ratio (1-2) SARS-CoV-2 RNA (DULCE) (NEGATIVE) Blood Type B POSITIVE Gel Antibody Screen Positive Crossmatch See Detail See Detail 12/07/20 12/07/20 12/07/20 Range/Units 15:43 16:35 21:16 WBC (4.23-9.07) K/mm3 RBC (4.63-6.08) M/mm3 Hgb (13.7-17.5) gm/dl Hct (40.1-51.0) % MCV (79.0-92.2) fl MCH (25.7-32.2) pg MCHC (32.2-35.5) g/dl RDW Std Deviation (35.1-43.9) fL Plt Count (163-337) K/mm3 MPV (9.4-12.3) fl Neut % (Auto) (34.0-67.9) % Lymph % (Auto) (21.8-53.1) % Banks % (Auto) (5.3-12.2) % Eos % (Auto) (0.8-7.0) Baso % (Auto) (0.1-1.2) % Neut # (Auto) (1.78-5.38) K/mm3 Lymph # (Auto) (1.32-3.57) K/mm3 [place] # (Auto) (0.30-0.82) K/mm3 Eos # (Auto) (0.04-0.54) K/mm3 Baso # (Auto) (0.01-0.08) K/mm3 Manual Slide Review Sodium (136-145) mEq/L Potassium (3.5-5.1) mEq/L Chloride (98-107) mEq/L Carbon Dioxide (21-32) mEq/L Anion Gap (5-15) BUN (7-18) mg/dL Creatinine (0.7-1.3) mg/dL Est Cr Clr Drug Dosing mL/min Estimated GFR (MDRD) (>60) mL/min BUN/Creatinine Ratio (14-18) Glucose (83-115) mg/dL POC Glucose 132 H 172 H (70-99) mg/dL Calcium (8.5-10.1) mg/dL Total Bilirubin (0.2-1.0) mg/dL AST (15-37) U/L ALT (16-63) U/L Alkaline Phosphatase (46-116) U/L Total Protein (6.4-8.2) g/dl Albumin (3.4-5.0) g/dl Globulin gm/dL Albumin/Globulin Ratio (1-2) SARS-CoV-2 RNA (DULCE) Negative (NEGATIVE) Blood Type Gel Antibody Screen Crossmatch 12/08/20 12/08/20 12/08/20 Range/Units 00:55 03:57 05:14 WBC 5.59 (4.23-9.07) K/mm3 RBC 2.35 L (4.63-6.08) M/mm3 Hgb 6.4 L* (13.7-17.5) gm/dl Hct 20.8 L (40.1-51.0) % MCV 88.5 (79.0-92.2) fl MCH 27.2 (25.7-32.2) pg MCHC 30.8 L (32.2-35.5) g/dl RDW Std Deviation 42.6 (35.1-43.9) fL Plt Count 138 L (163-337) K/mm3 MPV 11.6 (9.4-12.3) fl Neut % (Auto) 55.6 (34.0-67.9) % Lymph % (Auto) 32.4 (21.8-53.1) % Banks % (Auto) 7.7 (5.3-12.2) % Eos % (Auto) 3.4 (0.8-7.0) Baso % (Auto) 0.5 (0.1-1.2) % Neut # (Auto) 3.11 (1.78-5.38) K/mm3 Lymph # (Auto) 1.81 (1.32-3.57) K/mm3 [place] # (Auto) 0.43 (0.30-0.82) K/mm3 Eos # (Auto) 0.19 (0.04-0.54) K/mm3 Baso # (Auto) 0.03 (0.01-0.08) K/mm3 Manual Slide Review Abnormal smear Sodium (136-145) mEq/L Potassium (3.5-5.1) mEq/L Chloride (98-107) mEq/L Carbon Dioxide (21-32) mEq/L Anion Gap (5-15) BUN (7-18) mg/dL Creatinine (0.7-1.3) mg/dL Est Cr Clr Drug Dosing mL/min Estimated GFR (MDRD) (>60) mL/min BUN/Creatinine Ratio (14-18) Glucose (83-115) mg/dL POC Glucose 145 H 134 H (70-99) mg/dL Calcium (8.5-10.1) mg/dL Total Bilirubin (0.2-1.0) mg/dL AST (15-37) U/L ALT (16-63) U/L Alkaline Phosphatase (46-116) U/L Total Protein (6.4-8.2) g/dl Albumin (3.4-5.0) g/dl Globulin gm/dL Albumin/Globulin Ratio (1-2) SARS-CoV-2 RNA (DULCE) (NEGATIVE) Blood Type Gel Antibody Screen Crossmatch 12/08/20 12/08/20 12/08/20 Range/Units 07:15 08:47 11:31 WBC (4.23-9.07) K/mm3 RBC (4.63-6.08) M/mm3 Hgb 6.8 L* (13.7-17.5) gm/dl Hct 22.0 L (40.1-51.0) % MCV (79.0-92.2) fl MCH (25.7-32.2) pg MCHC (32.2-35.5) g/dl RDW Std Deviation (35.1-43.9) fL Plt Count (163-337) K/mm3 MPV (9.4-12.3) fl Neut % (Auto) (34.0-67.9) % Lymph % (Auto) (21.8-53.1) % Banks % (Auto) (5.3-12.2) % Eos % (Auto) (0.8-7.0) Baso % (Auto) (0.1-1.2) % Neut # (Auto) (1.78-5.38) K/mm3 Lymph # (Auto) (1.32-3.57) K/mm3 [place] # (Auto) (0.30-0.82) K/mm3 Eos # (Auto) (0.04-0.54) K/mm3 Baso # (Auto) (0.01-0.08) K/mm3 Manual Slide Review Sodium 144 (136-145) mEq/L Potassium 3.7 (3.5-5.1) mEq/L Chloride 108 H (98-107) mEq/L Carbon Dioxide 25 (21-32) mEq/L Anion Gap 14.7 (5-15) BUN 11 (7-18) mg/dL Creatinine 1.1 (0.7-1.3) mg/dL Est Cr Clr Drug Dosing 57.13 mL/min Estimated GFR (MDRD) > 60 (>60) mL/min BUN/Creatinine Ratio 10.0 L (14-18) Glucose 169 H (83-115) mg/dL POC Glucose 136 H (70-99) mg/dL Calcium 8.0 L (8.5-10.1) mg/dL Total Bilirubin 0.4 (0.2-1.0) mg/dL AST 14 L (15-37) U/L ALT 17 (16-63) U/L Alkaline Phosphatase 99 (46-116) U/L Total Protein 5.6 L (6.4-8.2) g/dl Albumin 2.9 L (3.4-5.0) g/dl Globulin 2.7 gm/dL Albumin/Globulin Ratio 1.1 (1-2) SARS-CoV-2 RNA (DULCE) (NEGATIVE) Blood Type Gel Antibody Screen Crossmatch Result Diagrams: 12/08/20 07:15 12/08/20 08:47 Sepsis Event Note - Evaluation Sepsis Screening Result: No Definite Risk - Focused Exam Vital Signs: Vital Signs Temp Temp Pulse Pulse Resp BP BP 12/08/20 13:32 72 83/20 L 12/08/20 12:38 72 109/49 L 12/08/20 12:36 36.6 C 75 20 109/49 L 12/08/20 12:23 36.7 C 62 18 105/53 L 12/08/20 12:20 62 105/53 L 12/08/20 12:02 69 90/46 L 12/08/20 11:32 64 111/51 L 05/08/21 11:04 36.7 C 65 101/47 L 12/08/20 11:02 36.7 C 63 87/67 L 12/08/20 10:50 36.8 C 72 16 95/51 L 12/08/20 10:21 36.8 C 20 82/50 L 12/08/20 08:12 12/08/20 07:49 36.7 C 71 16 98/79 12/08/20 03:53 36.6 C 72 12 103/67 Pulse Ox Pulse Ox 12/08/20 13:32 97 12/08/20 12:38 97 12/08/20 12:36 12/08/20 12:23 12/08/20 12:20 98 12/08/20 12:02 95 12/08/20 11:32 98 12/08/20 11:04 98 12/08/20 11:02 97 12/08/20 10:50 94 L 12/08/20 10:21 97 12/08/20 08:12 100 12/08/20 07:49 97 12/08/20 03:53 97 - Problem List Review Problem List Initiated/Reviewed/Updated: Yes - My Orders Last 24 Hours: My Active Orders 12/08/20 08:24 Fluticasone Propionate [Flonase] DOSE gm NASBOTH BID PRN 12/08/20 08:30 Lactated Ringers [Ringers, Lactated] 1,000 ml IV ASDIRECTED 12/08/20 Lunch [employer] Diet [DIET] 12/08/20 11:34 Blood Glucose Check, Bedside [RC] QIDACANDBED 12/08/20 12:00 Sodium Chloride 0.9% [Normal Saline] 250 ml IV ASDIRECTED 12/08/20 13:15 Patient's Own Medication [Ptom] 0 each PO ACBREAKFAST Patient's Own Medication [Ptom] 0 each PO DAILY 12/09/20 05:00 CBC WITH AUTO DIFF [HEME] DAILY COMPREHENSIVE METABOLIC PN,CMP [CHEM] DAILY 12/10/20 05:00 CBC WITH AUTO DIFF [HEME] DAILY COMPREHENSIVE METABOLIC PN,CMP [CHEM] DAILY 12/11/20 05:00 CBC WITH AUTO DIFF [HEME] DAILY COMPREHENSIVE METABOLIC PN,CMP [CHEM] DAILY 12/12/20 05:00 CBC WITH AUTO DIFF [HEME] DAILY COMPREHENSIVE METABOLIC PN,CMP [CHEM] DAILY 12/13/20 05:00 CBC WITH AUTO DIFF [HEME] DAILY COMPREHENSIVE METABOLIC PN,CMP [CHEM] DAILY - Assessment Assessment:: Assessment/Plan Comment:: Patient is a 75-year-old presents to the emergency department after developing bright red blood per rectum last evening. Patient reported in the emergency department that he had 4-5 episodes of hematochezia. Assessment: Acute GI Bleed -recent colonoscopy with polypectomy on 11/27 -BUN 22, suspect lower source, possible from biopsy sites -INR 1.0, no hx of AC, on ADA 325mg daily -EGD was performed by Dr. Barnett today - no active bleeding or stigmata or recent bleeding. But 5mm fresh superficial esophageal tear at the GE junction. -Colonoscopy was performed by Dr. Barnett today - retained prep was clear throughout. Anemia -Acute blood loss secondary to GI bleed -Hemoglobin 6.8 today -We will transfuse him with 1 to 2 units of PRBC (positive antibody on type and screen) Thrombocytopenia -Mild Plt 138, was 254 on admit -No evidence of DIC DM II -BG 270 on admit, currently 136 Acute Kidney Injury -On presentation Cr 1.7, now 1.1 s/p fluid resus Hypernatremia -Na 144 today Plan: Protonix 40mg IV push now, then BID Type and screen, Transfuse for active blood loss or Hgb <7 Hold Octreotide as no evidence of Cirrhosis or UGIB Surgical consult given recent colonoscopy with biopsy LR 50 cc/h SSI low sliding scale AM labs Clear liquid DVT prophylaxis: SCD Deposition: As per Dr. Barnett, may be able to be discharged to home tomorrow if Hgb remains >7 after transfusion.
[2020-12-09] MEDS: LEVOTHYROXINE 50 MCG PO SCH (05:23)
[2020-12-09] MEDS: Pantoprazole 40 MG Vial IVPUSH SCH (06:45)
[2020-12-09] MEDS ORDERED: Sodium Chloride 0.9% 250 ML IV SCH (08:45)
[2020-12-09] MEDS: Insulin Lispro 100 UNIT/ML 10 ML Vial SUBCUT SCH ×2 (10:19→12:40)
--- NOTE | 2020-12-09 15:40 | PCM.DCSUM1 ---
Discharge Summary - Hospital Course Free Text/Narrative:: Patient is a 75-year-old presents to the emergency department after developing bright red blood per rectum last evening. Patient reported in the emergency department that he had 4-5 episodes of hematochezia. Assessment: Acute GI Bleed -recent colonoscopy with polypectomy on 11/27 -BUN 22, suspect lower source, possible from biopsy sites -INR 1.0, no hx of AC, on ADA 325mg daily -EGD was performed by Dr. Barnett yesterday - no active bleeding or stigmata or recent bleeding. But 5mm fresh superficial esophageal tear at the GE junction. -Colonoscopy was performed by Dr. Barnett yesterday- retained prep was clear throughout. -He will be discharged on pantoprazole 40 mg daily Anemia -Acute blood loss secondary to GI bleed -Hemoglobin 6.8 yesterday -1 units of PRBC (positive antibody on type and screen) was given today. Repeat hemoglobin 8.6 1 hour after transfusion. Thrombocytopenia -Mild Plt 154 today, was 254 on admit -No evidence of DIC DM II -BG 270 on admit, currently 233 Acute Kidney Injury, resolved -On presentation Cr 1.7, now 1.1 s/p fluid resus -Creatinine 1.0 today Hypernatremia -Na 148 today Plan: Will discontinue Protonix 40mg IV push now, then BID. Patient will be discharged on pantoprazole 40 mg daily Metformin 1000 mg twice daily and glimepiride 4 mg in morning and 2 mg in the evening. I will discharge him on Lantus 5 units daily and the discontinue his home Lantus 19 units in the morning and 13 units in the evening since his blood sugar is no longer such high. Today patient does not have any complaints. Denies headache, dizziness, chest pain, shortness of breath, nausea, vomiting, abdominal pain, or diarrhea. No bleeding. Patient can walk. He refused to go to any facilities. Dr. Barnett cleared to discharge him to home today. Patient will be discharged home to follow with PCP in [address] Barnett/GI in 1 week. Repeat CBC, CMP and electrolytes in 3 days and then weekly. His Lantus was just changed. Check blood sugar before each meal and at bedtime. Adjust insulin based on sugar levels. Instructed RN to teach him how to check BG and inject insulin. Do not drive until approval from MD. Call PCP for medical issues. HPI Initial Comments: Patient is a 75-year-old presents to the emergency department after developing bright red blood per rectum last evening. Patient reported in the emergency department that he had 4-5 episodes of hematochezia. At time presentation patient denied any abdominal discomfort, nausea and vomiting, diarrhea melena or hematemesis. It does appear that the patient underwent a colonoscopy on 11/27/2020 where he had 10 polypectomies for which they are reported to be negative for malignancy. Patient does not take any anticoagulation however is on a full-strength aspirin daily. Patient otherwise denies any complaints and overall is a marginal historian. Diagnosis: Stroke: No - Discharge Data Discharge Date: 12/09/20 Discharge Disposition: Home, Self-Care 01 Condition: Good - Referral to Home Health Primary Care Physician: Gary Avina MD - Patient Summary/Data Consults: Consultations 12/07/20 04:25 Consult to Physician [CONS] Routine Recommended Follow-up Testing/Procedures: follow with PCP in [address] Barnett/GI in 1 week. Repeat CBC, CMP and electrolytes in 3 days and then weekly. His Lantus was just changed. Check blood sugar before each meal and at bedtime. Adjust insulin based on sugar levels. Do not drive until approval from MD. Call PCP for medical issues. - Patient Instructions Diet: Diabetic Diet Activity: As Tolerated Driving: Do Not Drive - Discharge Plan *PRESCRIPTION DRUG MONITORING PROGRAM REVIEWED*: Not Applicable *COPY OF PRESCRIPTION DRUG MONITORING REPORT IN PATIENT TY: Not Applicable Prescriptions/Med Rec: Insulin Aspart [Insulin Aspart Flexpen] See Protocol SQ QIDACANDBED #10 insuln.pen Insulin Glarg,Human.Rec.Analog [Lantus] 5 unit SQ DAILY #1 bottle Pantoprazole [ProTONIX] 40 mg PO DAILY #30 tab.cr Home Medications: Home Meds Fluticasone Propionate [Flonase] 1 dose NASBOTH BID PRN 06/14/19 [History] Glimepiride [Amaryl] 2 mg PO 1800 06/14/19 [History] Glimepiride [Amaryl] 4 mg PO QAM 06/14/19 [History] Levothyroxine [Synthroid] 50 mcg PO DAILY 06/14/19 [History] Lisinopril/Hydrochlorothiazide [Lisinopril-HCTZ 10-12.5 MG] 1 tab PO DAILY 06/14/19 [History] atorvaSTATin Calcium [Lipitor] 20 mg PO DAILY 06/14/19 [History] metFORMIN [Glucophage] 1,000 mg PO 06/14/19 [History] Albuterol Sulfate [Albuterol Sulfate HFA] 2 puff INH Q6H PRN 12/06/20 [History] Insulin Aspart [Insulin Aspart Flexpen] See Protocol SQ QIDACANDBED #10 insuln.pen 12/09/20 [Rx] Insulin Glarg,Human.Rec.Analog [Lantus] 5 unit SQ DAILY #1 bottle 12/09/20 [Rx] Pantoprazole [ProTONIX] 40 mg PO DAILY #30 tab.cr 12/09/20 [Rx] Referrals: Hamzah Barnett MD [Physician] - (within one week) Gary Avina MD [Primary Care Provider] - (in 3 days) - Discharge Summary/Plan Comment DC Time >30 min.: Yes - General Info Date of Service: 12/09/20 Admission Dx/Problem (Free Text: Admission Diagnosis/Problem Admission Diagnosis/Problem GI bleed not requiring more than 4 units of blood in 24 hours, ICU, or surgery Subjective Update: Patient is a 75-year-old presents to the emergency department after developing bright red blood per rectum last evening. Patient reported in the emergency department that he had 4-5 episodes of hematochezia. Does not have any bleeding. Patient underwent EGD and colonoscopy yesterday by Dr. Barnett -no active bleeding. Dr. Barnett cleared to discharge this patient. 1 units of RBC was given today. Repeat hemoglobin 8.6 1 hour after blood transfusion today. - Review of Systems Systems Review Comment: General: Reports: No Symptoms HEENT: Reports: No Symptoms Pulmonary: Reports: No Symptoms Cardiovascular: Reports: No Symptoms Gastrointestinal: Reports: Hematochezia Genitourinary: Reports: No Symptoms Musculoskeletal: Reports: No Symptoms Skin: Reports: No Symptoms Neurological: Reports: No Symptoms - Patient Data Vitals - Most Recent: Last Vital Signs Temp 36.2 C 12/09/20 11:37 Pulse 63 12/09/20 11:37 Resp 16 12/09/20 11:37 BP 125/59 L 12/09/20 11:37 Pulse Ox 98 12/09/20 11:24 Orthostatic Blood Pressure [ 77/52 Sitting] Orthostatic Blood Pressure [ 86/65 Standing] Orthostatic Blood Pressure [ 106/58 Supine] Weight - Most Recent: 82.826 kg I&O - Last 24 hours: Intake & Output 12/09/20 12/09/20 12/09/20 06:59 14:59 22:59 Intake Total 100 870 Balance 100 870 Lab Results - Last 24 hrs: Laboratory Results - last 24 hr 12/07/20 12/08/20 12/08/20 Range/Units 06:09 17:01 21:03 WBC (4.23-9.07) K/mm3 RBC (4.63-6.08) M/mm3 Hgb (13.7-17.5) gm/dl Hct (40.1-51.0) % MCV (79.0-92.2) fl MCH (25.7-32.2) pg MCHC (32.2-35.5) g/dl RDW Std Deviation (35.1-43.9) fL Plt Count (163-337) K/mm3 MPV (9.4-12.3) fl Neut % (Auto) (34.0-67.9) % Lymph % (Auto) (21.8-53.1) % Mckenzie % (Auto) (5.3-12.2) % Eos % (Auto) (0.8-7.0) Baso % (Auto) (0.1-1.2) % Neut # (Auto) (1.78-5.38) K/mm3 Lymph # (Auto) (1.32-3.57) K/mm3 Mckenzie # (Auto) (0.30-0.82) K/mm3 Eos # (Auto) (0.04-0.54) K/mm3 Baso # (Auto) (0.01-0.08) K/mm3 Manual Slide Review Sodium (136-145) mEq/L Potassium (3.5-5.1) mEq/L Chloride (98-107) mEq/L Carbon Dioxide (21-32) mEq/L Anion Gap (5-15) BUN (7-18) mg/dL Creatinine (0.7-1.3) mg/dL Est Cr Clr Drug Dosing mL/min Estimated GFR (MDRD) (>60) mL/min BUN/Creatinine Ratio (14-18) Glucose (83-115) mg/dL POC Glucose 200 H 154 H (70-99) mg/dL Calcium (8.5-10.1) mg/dL Total Bilirubin (0.2-1.0) mg/dL AST (15-37) U/L ALT (16-63) U/L Alkaline Phosphatase (46-116) U/L Total Protein (6.4-8.2) g/dl Albumin (3.4-5.0) g/dl Globulin gm/dL Albumin/Globulin Ratio (1-2) Blood Type B POSITIVE Gel Antibody Screen Positive Crossmatch See Detail 12/09/20 12/09/20 12/09/20 Range/Units 05:49 05:49 06:40 WBC 4.88 (4.23-9.07) K/mm3 RBC 2.59 L (4.63-6.08) M/mm3 Hgb 7.2 L* (13.7-17.5) gm/dl Hct 23.2 L (40.1-51.0) % MCV 89.6 (79.0-92.2) fl MCH 27.8 (25.7-32.2) pg MCHC 31.0 L (32.2-35.5) g/dl RDW Std Deviation 44.0 H (35.1-43.9) fL Plt Count 143 L (163-337) K/mm3 MPV 11.1 (9.4-12.3) fl Neut % (Auto) 53.1 (34.0-67.9) % Lymph % (Auto) 34.4 (21.8-53.1) % Mckenzie % (Auto) 8.8 (5.3-12.2) % Eos % (Auto) 3.1 (0.8-7.0) Baso % (Auto) 0.4 (0.1-1.2) % Neut # (Auto) 2.59 (1.78-5.38) K/mm3 Lymph # (Auto) 1.68 (1.32-3.57) K/mm3 Mckenzie # (Auto) 0.43 (0.30-0.82) K/mm3 Eos # (Auto) 0.15 (0.04-0.54) K/mm3 Baso # (Auto) 0.02 (0.01-0.08) K/mm3 Manual Slide Review Abnormal smear Sodium 148 H (136-145) mEq/L Potassium 3.8 (3.5-5.1) mEq/L Chloride 115 H (98-107) mEq/L Carbon Dioxide 26 (21-32) mEq/L Anion Gap 10.8 (5-15) BUN 11 (7-18) mg/dL Creatinine 1.0 (0.7-1.3) mg/dL Est Cr Clr Drug Dosing 62.84 mL/min Estimated GFR (MDRD) > 60 (>60) mL/min BUN/Creatinine Ratio 11.0 L (14-18) Glucose 148 H (83-115) mg/dL POC Glucose 137 H (70-99) mg/dL Calcium 7.8 L (8.5-10.1) mg/dL Total Bilirubin 0.5 (0.2-1.0) mg/dL AST 11 L (15-37) U/L ALT 18 (16-63) U/L Alkaline Phosphatase 84 (46-116) U/L Total Protein 4.8 L (6.4-8.2) g/dl Albumin 2.6 L (3.4-5.0) g/dl Globulin 2.2 gm/dL Albumin/Globulin Ratio 1.2 (1-2) Blood Type Gel Antibody Screen Crossmatch 12/09/20 12/09/20 Range/Units 11:05 14:25 WBC 5.54 (4.23-9.07) K/mm3 RBC 3.07 L (4.63-6.08) M/mm3 Hgb 8.6 L (13.7-17.5) gm/dl Hct 27.5 L (40.1-51.0) % MCV 89.6 (79.0-92.2) fl MCH 28.0 (25.7-32.2) pg MCHC 31.3 L (32.2-35.5) g/dl RDW Std Deviation 44.3 H (35.1-43.9) fL Plt Count 154 L (163-337) K/mm3 MPV 11.3 (9.4-12.3) fl Neut % (Auto) 57.5 (34.0-67.9) % Lymph % (Auto) 29.4 (21.8-53.1) % Mckenzie % (Auto) 9.2 (5.3-12.2) % Eos % (Auto) 3.2 (0.8-7.0) Baso % (Auto) 0.5 (0.1-1.2) % Neut # (Auto) 3.18 (1.78-5.38) K/mm3 Lymph # (Auto) 1.63 (1.32-3.57) K/mm3 Mckenzie # (Auto) 0.51 (0.30-0.82) K/mm3 Eos # (Auto) 0.18 (0.04-0.54) K/mm3 Baso # (Auto) 0.03 (0.01-0.08) K/mm3 Manual Slide Review Sodium (136-145) mEq/L Potassium (3.5-5.1) mEq/L Chloride (98-107) mEq/L Carbon Dioxide (21-32) mEq/L Anion Gap (5-15) BUN (7-18) mg/dL Creatinine (0.7-1.3) mg/dL Est Cr Clr Drug Dosing mL/min Estimated GFR (MDRD) (>60) mL/min BUN/Creatinine Ratio (14-18) Glucose (83-115) mg/dL POC Glucose 233 H (70-99) mg/dL Calcium (8.5-10.1) mg/dL Total Bilirubin (0.2-1.0) mg/dL AST (15-37) U/L ALT (16-63) U/L Alkaline Phosphatase (46-116) U/L Total Protein (6.4-8.2) g/dl Albumin (3.4-5.0) g/dl Globulin gm/dL Albumin/Globulin Ratio (1-2) Blood Type Gel Antibody Screen Crossmatch Med Orders - Current: Current Medications Acetaminophen (Acetaminophen 325 Mg Tab) 650 mg PO Q4H PRN PRN Reason: Fever Albuterol/Ipratropium (Albuterol/Ipratropium 3.0-0.5 Mg/3 Ml Neb Soln) 3 ml NEB Q6HRRT PRN PRN Reason: Shortness of Breath Last Admin: 12/08/20 08:10 Dose: 3 ml Documented by: Fluticasone Propionate (Fluticasone Propionate Nasal [place] 16 Gm Bottle) gm NASBOTH BID PRN PRN Reason: Congestion Hydromorphone HCl (Hydromorphone 0.5 Mg/0.5 Ml Syringe) 0.5 mg IVPUSH Q4H PRN PRN Reason: Abdominal Pain Sodium Chloride (Normal Saline) 250 mls @ 150 mls/hr IV ASDIRECTED [facility] Last Admin: 12/09/20 10:56 Dose: 150 mls/hr Documented by: Insulin Human Lispro (Insulin Lispro 100 Unit/Ml 10 Ml Vial) 0 unit SUBCUT TIDPC [facility]; Protocol Last Admin: 12/09/20 12:40 Dose: 2 units Documented by: Ondansetron HCl (Ondansetron 4 Mg/2 Ml Sdv) 4 mg IVPUSH Q8H PRN PRN Reason: Nausea Ondansetron HCl (Ondansetron 4 Mg/2 Ml Sdv) 4 mg IVPUSH ONETIME PRN PRN Reason: Nausea/Vomiting Pantoprazole Sodium (Pantoprazole 40 Mg Vial) 40 mg IVPUSH Q12H [facility] Last Admin: 12/09/20 06:45 Dose: 40 mg Documented by: Atorvastatin 40 Mg (Tab*Pt Own Med*) 0 each PO DAILY [facility] Last Admin: 12/09/20 10:21 Dose: 1 each Documented by: Levothyroxine 50 Mcg (Tab *Pt Own Med*) 0 each PO ACBREAKFAST [facility] Last Admin: 12/09/20 05:23 Dose: 1 each Documented by: Discontinued Medications Fentanyl (Fentanyl 100 Mcg/2 Ml Sdv) Confirm Administered Dose 100 mcg .ROUTE .STK-MED ONE Stop: 12/08/20 08:25 Sodium Chloride (Normal Saline) 1,000 mls @ 999 mls/hr IV ONETIME ONE Stop: 12/07/20 00:50 Last Admin: 12/06/20 23:55 Dose: 999 mls/hr Documented by: Sodium Chloride (Normal Saline) 1,000 mls @ 150 mls/hr IV ASDIRECTED [facility] Last Admin: 12/07/20 01:35 Dose: 150 mls/hr Documented by: Sodium Chloride (Normal Saline) 1,000 mls @ 999 mls/hr IV ONETIME ONE Stop: 12/07/20 03:53 Last Admin: 12/07/20 04:49 Dose: Not Given Documented by: Sodium Chloride (Normal Saline) 1,000 mls @ 150 mls/hr IV ASDIRECTED [facility] Last Admin: 12/07/20 04:48 Dose: 150 mls/hr Documented by: Dextrose/Sodium Chloride (Dextrose 5%-1/2 Ns) 1,000 mls @ 75 mls/hr IV ASDIRECTED [facility] Last Admin: 12/07/20 20:31 Dose: 75 mls/hr Documented by: Lidocaine HCl (Xylocaine-Mpf 1%) Confirm Administered Dose 4 mls @ as directed .ROUTE .STK-MED ONE Stop: 12/08/20 08:24 Sodium Chloride (Normal Saline) Confirm Administered Dose 1,000 mls @ as directed .ROUTE .[facility] ONE Stop: 12/08/20 08:24 Lactated Ringer's (Ringers, Lactated) 1,000 mls @ 50 mls/hr IV ASDIRECTED [facility] Last Admin: 12/08/20 16:30 Dose: 50 mls/hr Documented by: Lactated Ringer's (Ringers, Lactated) Confirm Administered Dose 1,000 mls @ as directed .ROUTE .[facility] ONE Stop: 12/08/20 09:55 Sodium Chloride (Normal Saline) 250 mls @ 100 mls/hr IV ASDIRECTED [facility] Last Admin: 12/08/20 12:24 Dose: 100 mls/hr Documented by: Insulin Human Regular (Insulin Regular, Human 100 Units/Ml 3 Ml Vial) 5 unit IV ONETIME STA Stop: 12/07/20 01:26 Last Admin: 12/07/20 01:35 Dose: 5 unit Documented by: Miscellaneous Medication (Phenylephrine Hcl In 0.9% Nacl 1 Mg/10 Ml Syringe) Confirm Administered Dose 1 mg .ROUTE .STK-MED ONE Stop: 12/08/20 08:24 Non-Formulary Medication (Albuterol Sulfate) 2 puff INH Q6H PRN PRN Reason: Shortness of Breath Polyethylene Glycol/Electrolytes (Polyethylene Glycol/Electrolytes 4,000 Ml Bottle) 4,000 ml PO ONETIME ONE Stop: 12/07/20 18:05 Last Admin: 12/07/20 19:03 Dose: 4,000 ml Documented by: Propofol (Propofol 200 Mg/20 Ml Sdv) Confirm Administered Dose 400 mg .ROUTE .STK-MED ONE Stop: 12/08/20 08:24 - Exam Physical Findings Comments:: General: Alert, Oriented HEENT: Conjunctiva Clear, Hearing Intact, Mucosa Moist & [place] Neck: Supple, Trachea Midline Lungs: Clear to Auscultation, Normal Respiratory Effort Cardiovascular: Regular Rate, Regular Rhythm. No: Systolic Murmur GI/Abdominal Exam: Normal Bowel Sounds, Soft, Non-Tender, No Organomegaly, No Distention. No: Guarding, Rigid, Rebound, Tender, Splenomegaly Extremities: Normal Inspection Peripheral Pulses: 2+: Radial (L), Radial (R) Skin: Warm, Dry, Intact Neuro Extensive - Mental Status: Alert, Oriented x3, Other (gcs 15 )
== END 2020-12-09 16:34 | disposition home or self-care (01) ==
LOC: JD.ED 23:21 → JD.MS 12-07 03:46
PROVIDERS: ADMIT Internal Medicine; ATTEND Internal Medicine
DX: K57.30 Diverticulosis of large intestine without perforation or abscess without bleeding (principal); K64.1 Second degree hemorrhoids; K31.7 Polyp of stomach and duodenum; D62 Acute posthemorrhagic anemia; D69.6 Thrombocytopenia, unspecified; E11.9 Type 2 diabetes mellitus without complications; E03.9 Hypothyroidism, unspecified; Z79.890 Hormone replacement therapy; Z01.812 Encounter for preprocedural laboratory examination; Z79.4 Long term (current) use of insulin; Z87.891 Personal history of nicotine dependence; Z20.822 Contact with and (suspected) exposure to COVID-19
CPT/HCPCS: 36415; 36430; 43235; 45378; 80048; 80053; 82947; 83735; 85007; 85014; 85018; 85025; 85027; 85610; 85730; 86850; 86870; 86900; 86901; 86905; 86922; 94640; 99284; A9270; C9113; G0378; J1815; J2704; J3010; J7030; J7042; J7050; J7120; P9016; U0002; 00813; 94760; 99100; 99217; 99219; 99226; 99285; J2370; J7620-GY

== ENCOUNTER 2024-08-25 07:17 | Day surgery (SDC) | payer MEDICARE, OTHER ==
[2024-08-25] MEDS: Polymyxin B/Trimethoprim 10 ML Bottle EYELF SCH (07:30)
[2024-08-25] MEDS: Brimonidine 0.2% Ophth Soln 5 ML Bottle EYELF SCH (07:35)
[2024-08-25] MEDS: Phenylephrine 2.5% Ophth Soln 2 ML Bot EYELF SCH (07:40)
[2024-08-25] MEDS: Tropicamide 1% Ophth Soln 3 ML Bottle EYELF SCH (07:45)
[2024-08-25] MEDS: Tetracaine HCl/PF 0.5% 4 ML Bottle EYEBOTH SCH (07:54)
[2024-08-25] MEDS: Lidocaine 1% PF 2 ML SDV INJECT SCH (07:55)
[2024-08-25] MEDS: Pilocarpine 4% Ophth Soln 15 ML Bot EYELF SCH (07:55)
[2024-08-25] MEDS: Cefuroxime 10 MG/ML SYRINGE EYELF SCH (07:55)
== END 2024-08-25 09:50 ==
LOC: JD.SDS 07:17
PROVIDERS: ATTEND Ophthalmology
DX: E11.36 Type 2 diabetes mellitus with diabetic cataract (principal); H25.813 Combined forms of age-related cataract, bilateral; H21.81 Floppy iris syndrome; H21.42 Pupillary membranes, left eye; I10 Essential (primary) hypertension; G30.0 Alzheimer's disease with early onset; F02.80 Dementia in other diseases classified elsewhere, unspecified severity, without behavioral disturbance, psychotic disturbance, mood disturbance, and anxiety; E03.9 Hypothyroidism, unspecified; E78.00 Pure hypercholesterolemia, unspecified; Z87.891 Personal history of nicotine dependence; Z79.4 Long term (current) use of insulin; Z79.890 Hormone replacement therapy; Z79.899 Other long term (current) drug therapy
CPT/HCPCS: 66982; A9270; J0697; J3490

== ENCOUNTER 2024-09-22 07:40 | Day surgery (SDC) | payer MEDICARE, OTHER ==
[2024-09-22] MEDS: Tetracaine HCl/PF 0.5% 4 ML Bottle EYEBOTH SCH (07:06)
[2024-09-22] MEDS: Phenylephrine 2.5% Ophth Soln 2 ML Bot EYERT SCH (07:06)
[2024-09-22] MEDS: Lidocaine 1% PF 2 ML SDV INJECT SCH (07:06)
[2024-09-22] MEDS: Cefuroxime 10 MG/ML SYRINGE EYERT SCH (07:07)
[2024-09-22] MEDS: Polymyxin B/Trimethoprim 10 ML Bottle EYERT SCH (07:07)
[2024-09-22] MEDS: Pilocarpine 4% Ophth Soln 15 ML Bot EYERT SCH (07:07)
[2024-09-22] MEDS: Brimonidine 0.2% Ophth Soln 5 ML Bottle EYERT SCH (07:07)
[2024-09-22] MEDS: Tropicamide 1% Ophth Soln 3 ML Bottle EYERT SCH (08:25)
== END 2024-09-22 09:58 ==
LOC: JD.SDS 07:40
PROVIDERS: ATTEND Ophthalmology
DX: E10.36 Type 1 diabetes mellitus with diabetic cataract (principal); H25.811 Combined forms of age-related cataract, right eye; H21.81 Floppy iris syndrome; H21.41 Pupillary membranes, right eye; H43.812 Vitreous degeneration, left eye; H16.103 Unspecified superficial keratitis, bilateral; H16.223 Keratoconjunctivitis sicca, not specified as Sjogren's, bilateral; H02.831 Dermatochalasis of right upper eyelid; S05.02XA Injury of conjunctiva and corneal abrasion without foreign body, left eye, initial encounter; H02.834 Dermatochalasis of left upper eyelid; Z96.1 Presence of intraocular lens; I10 Essential (primary) hypertension; G30.0 Alzheimer's disease with early onset; F02.80 Dementia in other diseases classified elsewhere, unspecified severity, without behavioral disturbance, psychotic disturbance, mood disturbance, and anxiety; Z87.891 Personal history of nicotine dependence; Z79.899 Other long term (current) drug therapy
CPT/HCPCS: A9270-GY; J0697; J3490